=== PATIENT | female | born 1935 | race Caucasian/White ===

== ENCOUNTER 2018-09-18 11:27 | Inpatient (IN) ==
--- NOTE | 2018-09-18 12:05 | HISTORY AND PHYSICAL ---
HISTORY: This is an 80-year-old female patient of mine well known to me. She states the last night she got up and she fell. She was able to get back up on the bed, but she has discontinued epigastric pain that she has had for a couple of weeks. She feels very weak and her blood pressure was low at 94/58. Denies any chest pain or palpitations. No fever or chills. I had seen her in the clinic back just a couple of days ago, where she was complaining of her stomach burning and felt she might have gastritis or peptic ulcer disease. She has been having a lot of worry according to her son. She has not been eating or drinking much. PAST MEDICAL HISTORY: 1. Hypercholesterolemia. 2. Coronary artery disease. She has had a history of stents on initial presentation in 2013, had an abnormal stress test. In 2015, had a heart catheterization which did not show any significant restenoses. ALLERGIES: Allergic to penicillin. FAMILY HISTORY: Denies any significant heart, lung or kidney disease. SOCIAL HISTORY: Negative for alcohol or tobacco. She lives alone at home in an apartment here in [place]. REVIEW OF SYSTEMS: General: She is not eating well. Appetite is poor. Not sure how much weight loss. According to my records, she has maintained her weight at 150. She is just very weak, legs feel very weak and very tired. HEENT: No change in visual or hearing acuity. Respiratory: No increased work of breathing or dyspnea. Cardiovascular: Denies any chest pain or palpitations. GI and : No diarrhea. No change in bowels. No gross hematuria or dysuria. Endocrinologic/Hematologic: No significant history. PHYSICAL EXAMINATION: VITAL SIGNS: Blood pressure 94/58, pulse at 102, respirations 16, weight is 150 pounds, and temperature is 98.2. GENERAL: She is awake and alert. Her son had brought her to my clinic. HEENT: Pupils are equal and round. No distended neck veins. LUNGS: Clear in all lung knox. CARDIOVASCULAR: Regular rhythm and rate without murmur or S3. PMI nondisplaced. No S3 or S4 gallop appreciated. Lungs are clear anterior and posterior. ABDOMEN: She has tenderness to deep palpation in the epigastric area. Otherwise, no sign of organomegaly or tenderness for pain. EXTREMITIES: No pedal edema. ASSESSMENT AND PLAN: 1. A fall, very weak. Blood pressure is low. She may be a little bit intravascularly dry. She is not eating much, and has this epigastric pain. I am going to give her some fluids. I am going to check her electrolytes, thyroid and her blood counts. We will get a chest x-ray, an abdominal flat and upright. Maybe, we will get an ultrasound of her abdomen or 2. 2. Recent fall. It does not look like she has any bony injuries, but she lives alone not able to get around and walk very well so we would have to figure out something to improve her strength. I will get physical therapy involved. We may end up going to rehab. 3. History of coronary artery disease. I do not see any sign of active ischemia. 4. Hypercholesterolemia. Aware. cc: Zachary Rodriguez MD
[2018-09-18] MEDS ORDERED: NS 1,000 ML IV SCH (14:29)
[2018-09-18] MEDS: ATIVAN PO SCH ×2 (15:17→21:07)
[2018-09-18 15:20] LABS: BASO# 0.05 X1000 (0.0-0.2); BASO% 0.6 % (0.0-0.8); EOS# 0.02 X1000 (0.0-0.7); EOS% 0.2 % (0.0-10.0); HEMATOCRIT 34.6 % (37.0-47.0); HEMOGLOBIN 11.1 g/dL (12.0-16.0); IMM GRAN# 0.03 X1000 (0.0-0.04); IMM GRAN% 0.3 % (0.0-0.5); LYMPH# 1.34 X1000 (1.2-3.4); LYMPH% 14.8 % (20.5-51.1); MCH 32.2 PG (27-31); MCHC 32.1 g/dL (33-37); MCV 100.3 FL (81-99); MONO# 1.34 X1000 (0.11-0.59); MONO% 14.8 % (1.7-9.3); NEUT# 6.27 X1000 (1.4-6.5); NEUT% 69.3 % (42.2-75.2); PLT 263 X1000 (130-400); RBC 3.45 XMIL (4.2-5.4); RDW 16.5 % (11.5-14.5); WBC 9.05 X1000 (4.8-10.8)
--- NOTE | 2018-09-18 15:23 | EKG Report ---
Test Performed on : 09/18/2018 2:39:58 PM Test Reason : chest pain Blood Pressure : / mmHG Vent. Rate : 104 BPM Atrial Rate : 104 BPM P-R Int : 156 ms QRS Dur : 090 ms QT Int : 364 ms P-R-T Axes : 040 -05 102 degrees QTc Int : 478 ms Sinus tachycardia. Left ventricular hypertrophy with repolarization abnormality Abnormal ECG When compared with ECG of 15-SEP-2017 06:49, ST now depressed in Lateral leads T wave inversion now evident in Lateral leads Unconfirmed Result
[2018-09-18 15:42] LABS: ALB/GLOB RATIO 0.6; ALBUMIN 3.3 g/dL (3.5-5.0); CALCIUM 8.8 mg/dL (8.8-10.2); CREATININE 0.9 mg/dL (0.5-0.9); MAGNESIUM 2.2 mg/dL (1.5-2.7); POTASSIUM 4.4 mmol/L (3.5-5.1); TOTAL BILIRUBIN 0.57 mg/dL (0.20-1.00); TOTAL PROTEIN 8.7 g/dL (6.3-8.3)
[2018-09-18 16:01] LABS: T4 7.13 ug/dL (4.60-12.00); TSH 2.03 uIUmL (0.27-4.20)
[2018-09-18] MEDS: PRILOSEC PO SCH (21:07)
[2018-09-18] MEDS: ELAVIL PO SCH (21:08)
[2018-09-18] MEDS: LOPRESSOR PO SCH (21:08)
[2018-09-19 00:31] LABS: URINE SOURCE CLEAN CATCH
[2018-09-19 00:37] LABS: BILIRUBIN URINE NEGATIVE (NEGATIVE); BLOOD URINE NEGATIVE (NEGATIVE); COLOR YELLOW; GLUCOSE URINE NEGATIVE (NEGATIVE); KETONE URINE NEGATIVE (NEGATIVE); LEUKOCYTES URINE LARGE (NEGATIVE); NITRITE URINE NEGATIVE (NEGATIVE); PROTEIN URINE 50 mg/dL (NEGATIVE); SP GRAVITY URINE 1.022; TURBIDITY URINE HAZY (CLEAR); UROBILINOGEN URINE NORMAL (NORMAL)
[2018-09-19 00:38] LABS: UR EPITHELIAL CELLS <10 /HPF (<10); URINE BACTERIA NEGATIVE /HPF; URINE RBC <10 /HPF (<10); URINE WBC TNTC /HPF (<10)
[2018-09-19] MEDS ORDERED: LASIX IV ONE (04:16)
[2018-09-19 04:39] LABS: ALLEN TEST YES; BE -8.2 mmoll (-3.0-3.0); BLOOD TYPE ARTERIAL; HCO3-(ACT) 18.5 mmoll (20.0-26.0); METHB 0.8 % (0.0-1.5); O2(CT) 17.3 mL/dL (15.0-23.0); O2HB 94.7 % (95.0-99.0); PO2(98.6) 92 mmHg (60-100); SAMPLE BLOOD; SAO2 97.3 % (95.0-100.0); THB 12.9 g/dL (11.5-17.4)
[2018-09-19 04:40] LABS: MODALITY BI PAP; pH(98.6) 7.17 (7.35-7.45)
[2018-09-19 04:41] LABS: PCO2(98.6) 57 mmHg (35-45)
[2018-09-19 05:10] LABS: INR 1.17; PROTIME 15.9 Seconds (11.0-16.0)
[2018-09-19 05:40] LABS: BASO% 0.6 % (0.0-0.8); EOS# 0.08 X1000 (0.0-0.7); EOS% 0.5 % (0.0-10.0); HEMATOCRIT 40.4 % (37.0-47.0); HEMOGLOBIN 12.7 g/dL (12.0-16.0); IMM GRAN# 0.08 X1000 (0.0-0.04); IMM GRAN% 0.5 % (0.0-0.5); LYMPH# 3.38 X1000 (1.2-3.4); LYMPH% 19.6 % (20.5-51.1); MCH 31.7 PG (27-31); MCHC 31.4 g/dL (33-37); MCV 100.7 FL (81-99); MONO# 1.94 X1000 (0.11-0.59); MONO% 11.2 % (1.7-9.3); NEUT# 11.69 X1000 (1.4-6.5); NEUT% 67.6 % (42.2-75.2); PLT 425 X1000 (130-400); RBC 4.01 XMIL (4.2-5.4); RDW 16.7 % (11.5-14.5); WBC 17.27 X1000 (4.8-10.8)
[2018-09-19 05:44] LABS: ALB/GLOB RATIO 0.5; ALBUMIN 3.2 g/dL (3.5-5.0); CALCIUM 8.5 mg/dL (8.8-10.2); CREATININE 0.9 mg/dL (0.5-0.9); POTASSIUM 4.3 mmol/L (3.5-5.1); TOTAL BILIRUBIN 0.77 mg/dL (0.20-1.00); TOTAL PROTEIN 9.1 g/dL (6.3-8.3)
[2018-09-19 05:46] LABS: LYMPHS 21 % (21-51); MONO 12 % (1-9); SEGS 67 % (42-75)
[2018-09-19 05:46] LABS: URINE SOURCE CATH
[2018-09-19 05:50] LABS: BILIRUBIN URINE NEGATIVE (NEGATIVE); BLOOD URINE NEGATIVE (NEGATIVE); COLOR YELLOW; GLUCOSE URINE NEGATIVE (NEGATIVE); KETONE URINE NEGATIVE (NEGATIVE); LEUKOCYTES URINE NEGATIVE (NEGATIVE); NITRITE URINE NEGATIVE (NEGATIVE); PROTEIN URINE 30 mg/dL (NEGATIVE); SP GRAVITY URINE 1.022; TURBIDITY URINE CLEAR (CLEAR); UR EPITHELIAL CELLS <10 /HPF (<10); URINE BACTERIA NEGATIVE /HPF; URINE RBC <10 /HPF (<10); URINE WBC <10 /HPF (<10); UROBILINOGEN URINE NORMAL (NORMAL)
[2018-09-19] MEDS ORDERED: LOVENOX SUBQ SCH (06:00)
[2018-09-19 06:01] LABS: CK INDEX 6.7 (0.0-2.5); CK-MB 68.72 ng/mL (0.0-5.0)
[2018-09-19] MEDS: CLINDAMYCIN 600 MG/D5W 600 MG/50 ML IVPB IV SCH ×4 (06:10→21:11)
[2018-09-19] MEDS ORDERED: VANCOMYCIN IV PER PHARMACY MISC SCH (06:15)
--- NOTE | 2018-09-19 06:28 | Diag Imaging Result Doc PS360 ---
CHEST-PORTABLE - 09/19/2018 INDICATION: SOB COMPARISON: 09/13/2017 FINDINGS: There are new dense bilateral mixed infiltrates. There are small pleural effusions. Heart size is borderline enlarged. IMPRESSION: Extensive bilateral infiltrates which may represent pulmonary edema. Small pleural effusions. Borderline heart size. Electronically signed by Reyes Newman 09/19/2018 6:25 AM
[2018-09-19] MEDS: MAXIPIME 2 GM in NS 100 ML IV SCH ×3 (06:42→22:59)
--- NOTE | 2018-09-19 06:58 | PROGRESS NOTE ---
DATE: 09/19/2018 SUBJECTIVE: I was called early this morning from [address] [place] [address] secondary to increasing respiratory demands. Vital signs were obtained including tachycardia and tachypnea, but acceptable blood pressure. An order of Lasix was provided. An EKG was ordered. Upon my call back to confirm EKG findings, the patient had experienced progressive dyspnea and respiratory distress. Critical assistance team was contacted. I immediately came in to evaluate the patient. Upon my arrival, she remained on [address] [place] [address]. She was on BiPAP therapy. Respiratory rate was noted to be significantly elevated in the 50s. Heart rate was noted to be in the 150 range. EKG suggested a sinus tachycardia. The patient's chart was quickly reviewed. With this review and the patient's declining clinical condition, the patient was transferred to the ICU. Since being in the ICU, the patient's overall condition has improved, although not normalized. Respiratory rate has decreased from the 50 range to between 30 and 40. Heart rate has decreased from the 150s to the 130s. The patient originally complained of nausea and epigastric pain. Symptoms have essentially resolved. Laboratory data returned with concerning findings including an elevated CK and troponin. Further evaluation in the ICU setting will be pursued. OBJECTIVE: Vital Signs: Temperature 98.3 degrees, heart rate 136, respirations 31, blood pressure is 100/71. General: On BiPAP. Mild respiratory distress, significantly improved from previous. Cardiovascular: Regular rhythm. Tachycardic. No significant murmurs, rubs, or gallops. Pulmonary: Rhonchi and crackles through out. Compromised air movement. Abdomen: Soft, mildly tender in the epigastric region. Nondistended. Positive bowel sounds. Extremities: Moves all extremities well. No significant clubbing, cyanosis, or edema. Dermatologic: Evaluation reveals no evidence of rash. LABORATORY DATA: White blood cell count 17.27, hemoglobin 12.7, hematocrit 40, platelet count 425,000. PT 15.9, INR is 1.17. Sodium 130, potassium 4.3, chloride 94, bicarbonate 18, BUN 29, creatinine 0.9, glucose 220, calcium 8.5, total bilirubin 0.77, total protein 9.1, albumin 3.2, alkaline phosphatase 152, AST 197, ALT 43. CK total 1019, CK-MB 68.72, troponin 2.99. Chest x-ray reveals opacities in bilateral lungs. ASSESSMENT AND PLAN: 1. Acute respiratory failure: At this point, the definitive etiology is to be determined. Chest x-ray is consistent with pulmonary edema versus infiltrate. ABG is concerning with a pH of 7.17. The patient has been moved to the intensive care unit. A dose of Lasix was provided. BiPAP was continued. Antibiotics, including cefepime and clindamycin, were initiated for the possibility of pneumonia/aspiration. Depending on the patient's progress, the patient may require mechanical ventilation. We will follow her clinical course very closely over the course of the next several hours. We will repeat ABG at [address]-elevation acute myocardial infarction: The patient's EKG suggested inferolateral ST changes. She currently is chest pain free. The question is raised whether this is reactive from her pulmonary/respiratory distress or if this is the primary source. We will follow serial cardiac enzymes. I am unable to provide a beta-reginald at the present time secondary to her marginal blood pressure. We will consult Cardiology for further recommendations and assistance. 3. Critical aortic stenosis: The patient has known disease. The patient's volume status will be monitored closely in this setting. 4. Transaminitis/elevated alkaline phosphatase: In the setting of nausea and abdominal discomfort, the question is raised whether this may be a primary source of her acute illness. We will also remain aware that transaminases may be elevated simply secondary to elevated CK level. We will defer further management to Dr. Rodriguez. 5. Elevated protein gap: Once again, the consequence of this in the acute setting is unknown. We will defer further management to Dr. Rodriguez. 6. Disposition: At this point, the patient continues to require intermediate care in the intensive care unit setting. Further decisions will be per her primary care team. cc: MD Zachary Luciano MD MTDD
[2018-09-19 07:20] LABS: ALLEN TEST YES; BE -2.8 mmoll (-3.0-3.0); BLOOD TYPE ARTERIAL; HCO3-(ACT) 22.7 mmoll (20.0-26.0); METHB 1.3 % (0.0-1.5); MODALITY BI PAP; O2(CT) 16.3 mL/dL (15.0-23.0); PCO2(98.6) 37 mmHg (35-45); PO2(98.6) 204 mmHg (60-100); SAMPLE BLOOD; SAO2 99.5 % (95.0-100.0); THB 11.6 g/dL (11.5-17.4); pH(98.6) 7.38 (7.35-7.45)
--- NOTE | 2018-09-19 07:31 | EKG Report ---
Test Performed on : 09/19/2018 04:40:36 AM Test Reason : SOB Blood Pressure : / mmHG Vent. Rate : 156 BPM Atrial Rate : 157 BPM P-R Int : 144 ms QRS Dur : 092 ms QT Int : 292 ms P-R-T Axes : 035 000 094 degrees QTc Int : 470 ms Sinus tachycardia. Cannot rule out Anterior infarct , age undetermined Marked ST abnormality, possible lateral subendocardial injury Abnormal ECG When compared with ECG of 18-SEP-2018 14:39, Vent. rate has increased BY 52 BPM Unconfirmed Result
[2018-09-19] MEDS ORDERED: VANCOMYCIN 1,600 MG in NS 250 ML IV ONE (08:00)
[2018-09-19] MEDS: LOPRESSOR PO SCH ×2 (08:20→21:54)
[2018-09-19] MEDS: PRILOSEC PO SCH ×2 (08:22→20:20)
[2018-09-19] MEDS: CENTRUM SILVER PO SCH (08:22)
[2018-09-19] MEDS: ATIVAN PO SCH ×3 (08:23→20:20)
--- NOTE | 2018-09-19 10:56 | Diag Imaging Result Doc PS360 ---
CHEST-2 VIEWS - 09/19/2018 10:47 AM INDICATION: weakness COMPARISON: 4:38 AM FINDINGS: There has been significant improvement in the extensive bilateral infiltrates/pulmonary edema. There are small pleural effusions. Stable cardiomegaly. IMPRESSION: Significant improvement in the extensive pulmonary edema. Electronically signed by Reyes Newman 09/19/2018 10:54 AM
--- NOTE | 2018-09-19 11:05 | EKG Report ---
Test Performed on : 09/19/2018 09:27:21 AM Test Reason : ST Blood Pressure : / mmHG Vent. Rate : 112 BPM Atrial Rate : 112 BPM P-R Int : 172 ms QRS Dur : 080 ms QT Int : 346 ms P-R-T Axes : 041 001 116 degrees QTc Int : 472 ms Sinus tachycardia. Left ventricular hypertrophy with repolarization abnormality Abnormal ECG No previous ECGs available Unconfirmed Result
--- NOTE | 2018-09-19 11:53 | CARDIOLOGY CONSULTATION ---
DATE: 09/19/2018 CHIEF COMPLAINT: Generalized weakness, and falling. HISTORY OF PRESENT ILLNESS: Ms. Hogan is an 82-year-old, white female with a history of coronary disease and severe aortic stenosis who presented yesterday with feeling of weakness as well as a fall. The previous evening, she had apparently got up and had a fall. She was did not suffer any injuries, but was able to get back in bed. She has had some vague epigastric discomfort for number of days, but no exertional chest pain. She denies any overt orthopnea, syncope or lower extremity edema. She was admitted and placed on some IV fluids and then very early this morning she had respiratory distress. She was very tachycardic. She was eventually transferred down to the ICU and was seen by Dr. See Mccarthy. She was diuresed, placed on BiPAP and resuscitated appropriately. This morning she is on just nasal cannula. She is not having any discomfort. Her breathing is adequate and she has no chest pain. PAST MEDICAL HISTORY: 1. Significant for coronary artery disease. She had a previous history of PCI as well as a catheterization in 2018. I do not have those notes available to me at this time, but she did have a severe lesion on that study which required intervention. 2. History of severe aortic stenosis. The last echocardiogram that I have was from August 2017. This demonstrated a mean gradient across the aortic valve of 63, a peak of 96 and a valve area using continuity equation of 0.6 cm2. She had a dilated left ventricle with hyperdynamic left ventricular function of 75%. She initially had evaluation of this with Dr. Kapadia and was due to undergo a valve replacement with coronary bypass grafting, but this procedure was apparently terminated secondary to potential infectious issues going on at that time, as well as a concern for a potential anesthetic reaction as the patient had an abrupt temperature rise from 37 to 38 degrees Celsius. 3. Reflux disease. SOCIAL HISTORY: No alcohol or tobacco. She apparently lives at home alone. FAMILY HISTORY: No history of coronary disease that she is aware of. REVIEW OF SYSTEMS: A 10-system review of systems is negative except for those mentioned in history of present illness. PHYSICAL EXAMINATION: Vital signs: The patient is afebrile. Her heart rate has been predominantly in the 110s to 120s recently. Her blood pressure is 74/63. Her systolics most recently appear to be in the 70s to 90s. Generally: She is in no acute distress. She is sitting up. She has no complaints. She is talking in full sentences. She is in no discomfort. HEENT: Oropharynx is moist. She has poor dentition. Eye examination shows pink conjunctivae. White sclerae. Neck: Examination shows no obvious thyromegaly or thyroid tenderness. Cardiovascular: She sounds to be in a regular rate and rhythm. I do not hear any obvious murmurs. She has no S3. She has no lower extremity edema. She has warm and well perfused extremities. Chest: Exam sounds relatively clear to auscultation bilaterally. She has no increased work of breathing. Abdomen: Soft, nontender, nondistended. She has no obvious organomegaly. Skin: Warm and dry throughout without any rashes. Neurological: She is moving all extremities well. She has no lateralizing deficits. Psychiatric: Alert and oriented, pleasant, normal mood and affect. PERTINENT DATA: Her EKG on the at 14:39 shows sinus rhythm, LVH with associated ST-T wave changes. Rate was 104 beats per minute. Her subsequent EKG September 19 at 4:40 a.m. appears to show a sinus tachycardia at 156 beats per minute. She does have some mild worsening of her ST depression in the lateral chest and limb leads. Final EKG occurring this morning at 9:27 shows sinus tachycardia 112 beats per minute. She has a mild ST depression in her lateral leads with associated LVH-type changes. She had a chest x-ray performed showing a significant improvement in bilateral extensive pulmonary infiltrates and edema. Her laboratory data shows a white count of 17.2 which jeni from 9 yesterday, hematocrit 40, platelet count 425,000. She does have a sodium of 130, potassium 4.3, BUN 29, creatinine 0.9. Her CK is 1019. Her initial troponin is 2.99. Her UA was reviewed. ASSESSMENT: Ms. Hogan is an 82-year-old female with severe aortic stenosis a year ago who presented with complaints of weakness and subsequently developed a respiratory failure likely secondary to volume overload due to her severe aortic stenosis. PLAN: Ms. Hogan is an 82-year-old female who presented with vague weakness complaints yesterday, subsequently had a respiratory arrest likely due to critical aortic stenosis. The events of a year ago or a little bit fuzzy, but it sounds like she may not have followed up with her business partner over in [place], Dr. Ortega, to pursue further evaluations after the bypass and valve replacement were aborted originally. It sounds like she was undergoing some sort of TAVR-type evaluation, but she again never followed up with this. I have had charanjit discussions with her regarding her current medical situation and consequences of not pursuing action on this in the future. She is currently deciding whether she wants to go through aortic valve evaluations again or whether she would pursue a more medical treatment, which ultimately I think would be a more palliative/hospice-type approach. She seems better from a volume standpoint currently. We will reorder an echo to re-evaluate her aortic valve and her ejection fraction. Further recommendations to come. cc: MD Zachary Nur MD
--- NOTE | 2018-09-19 12:30 | PROGRESS NOTE ---
DATE: 09/19/2018 SUBJECTIVE: Ms. Hogan is awake and alert. She is breathing better, feels more comfortable. She has moved to the ICU. She had a rough evening and she looked like she went into flash edema. Dr. Mccarthy gave her some Lasix and diuresed her and for a while she was on BiPAP. She is now on nasal cannula breathing more comfortably. Her son was at the bedside. OBJECTIVE: Vitals: Temperature 98 degrees, pulse 111, respirations 34, blood pressure 74/63. Blood pressures have been between 74 and 88/60-63. Eyes: Pupils are equal. Neck: She does not have distended neck veins at this time. Lungs: Clear with rales at both bases. Cardiovascular exam: Regular rhythm and rate without murmur or S3. Abdomen: Soft. Extremities: No pedal edema. LABORATORY: Yesterday, white count went up from 9000 to 17,270. Her hematocrit was 40, platelet count 425,000. Sodium 130, potassium 4.3, chloride 94, BUN 29, creatinine 0.9, alkaline phosphatase 152. CKs are elevated at 1000. Troponin 2.990, so elevation of troponin as well. Urinalysis unremarkable. Blood gas yesterday morning, pH was 7.38, pCO2 was 37, PO2 was 204, O2 saturation 99%. That was on BiPAP 14/6, pressure at 60% FiO2. ASSESSMENT AND PLAN: 1. She had severe aortic stenosis a year ago. There was an attempt to replace her aortic valve, but she was on the operating table and developed a febrile illness and seemed to have a reaction. They were questioning a reaction to anesthesia, and they did they did not want to pursue the procedure. I think she was going to follow up and was supposed to follow up and look into intervascular procedure for aortic valve replacement, but this was not done. She has reported she has felt good for the last 6 months, but this appears to be decompensation of her aortic valve. 2. Recent fall. No bony injuries, but very sore and complains she is very weak. They is why she came into the hospital. 3. Coronary artery disease. She has an elevation of troponin and CK and this may be a secondary type of ischemia from hypoxemia and aortic stenosis. She does have known coronary artery disease. 4. Hypercholesterolemia. Cardiology to discuss with her our options. Her electrolytes this morning, sodium 130, potassium 4.3, chloride 94, BUN 29, creatinine 0.9. 5. Current orders: She is on Elavil 25 mg at bedtime, getting clindamycin 600 mg q.8 hours, getting cefepime 2 g IV q.8, Prilosec 40 mg b.i.d. She got a dose of vancomycin yesterday. 6. I do not see any evidence specifically of pneumonia, but cannot rule out at this point. Chest x-ray this morning, significant improvement in extensive pulmonary edema. 7. She has a nondisplaced fracture of the distal radius on her wrist x-ray, and that was on the left side and her shoulder x-ray, fracture of the proximal humerus and her elbow, no evidence of acute osseous abnormality. So, she has a fracture in her left shoulder, proximal humerus, and fracture in her wrist. These are old fractures from December 2017, but no new bony injuries that we have determined. She had previously been in the hospital for a syncopal episode without warning and she had some hyponatremia. Appeared a little volume depleted. We discovered that she had severe aortic stenosis, underlying coronary artery disease, underwent coronary intervention in 2016 at [facility] and had 2 stents applied. Gave her some normal saline at that time and set her up for follow-up on valve replacement dictation. cc: Zachary Rodriguez MD
[2018-09-19 15:51] LABS: CK INDEX 6.9 (0.0-2.5); CK-MB 46.11 ng/mL (0.0-5.0)
[2018-09-19] MEDS: TYLENOL PO PRN (16:34)
[2018-09-19] MEDS: ELAVIL PO SCH (20:20)
[2018-09-19] MEDS: LOVENOX SUBQ SCH (20:20)
[2018-09-19 21:42] LABS: CK INDEX 6.4 (0.0-2.5); CK-MB 28.78 ng/mL (0.0-5.0)
[2018-09-20] MEDS: CLINDAMYCIN 600 MG/D5W 600 MG/50 ML IVPB IV SCH ×4 (04:58→21:41)
[2018-09-20] MEDS: MAXIPIME 2 GM in NS 100 ML IV SCH ×5 (05:41→22:13)
[2018-09-20 06:19] LABS: CALCIUM 8.5 mg/dL (8.8-10.2); CREATININE 0.9 mg/dL (0.5-0.9); POTASSIUM 4.2 mmol/L (3.5-5.1)
[2018-09-20 07:23] LABS: CK INDEX 5.6 (0.0-2.5); CK-MB 16.95 ng/mL (0.0-5.0)
[2018-09-20] MEDS: LOPRESSOR PO SCH ×3 (08:50→20:46)
[2018-09-20] MEDS: CENTRUM SILVER PO SCH (08:50)
[2018-09-20] MEDS: PRILOSEC PO SCH ×3 (08:50→20:47)
[2018-09-20] MEDS: ATIVAN PO SCH ×4 (08:50→20:46)
[2018-09-20] MEDS ORDERED: NS 400 ML IV ONE (08:51)
[2018-09-20] MEDS: LOVENOX SUBQ SCH ×3 (08:54→20:46)
[2018-09-20] MEDS: ZOFRAN IV PRN ×3 (09:13→19:33)
[2018-09-20] MEDS: NS 1,000 ML IV SCH (09:15)
--- NOTE | 2018-09-20 10:33 | PROGRESS NOTE ---
DATE: 09/20/2018 SUBJECTIVE: Ms. Hogan was sitting up. She is breathing better. She is having nausea, though today. Blood pressure is a little lower, so I am going to give her a little bit of fluid back today and see if that helps her. OBJECTIVE: Vitals: Temperature 97.9 degrees, pulse 103, respirations 15, blood pressure 99/67. Lungs: Clear in all lung knox. Cardiovascular: Regular rate without murmur or S3. Abdomen: Soft. Skin: Warm and dry. URINE OUTPUT: 1 liter . ASSESSMENT AND PLAN: Presented with weakness. She has a critical aortic stenosis and she has had symptomatic syncope and hypotension. She had followed up with Dr. Ortega. Her open aortic valve replacement had been aborted originally and she was to pursue a TAVR-type evaluation, but I do not know that has ever happened. So, I will discuss with [place] and we will see if we can get that set up. I had a long discussion with her and she has agreed to try to pursue TAVR aortic valve replacement. I think we need to go after that. cc: Zachary Rodriguez MD
[2018-09-20] MEDS: TYLENOL PO PRN (11:29)
--- NOTE | 2018-09-20 13:19 | ECHO REPORT ---
ORDER DATE: 09/19/2018 ECHOCARDIOGRAPHIC MEASUREMENTS: 1. Left ventricular end-diastolic diameter 5.3. 2. Aortic root 3.1. 3. Left atrium 4.7. SUMMARY: 1. Fair quality study. Intravenous echo contrast agent utilized to enhance endocardial definition. 2. 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 Peak velocity across aortic valve was 3.7. Peak gradient across the aortic valve was 58 mmHg with a mean gradient of 35 mmHg. The calculated aortic valve area using continuity equation/Doppler is less than or equal to 0.6 cm2 suggesting severe aortic stenosis. Moderate mitral annular calcification is demonstrated with mild to moderate mitral regurgitation. Tricuspid and pulmonic valves are without evidence of structural abnormality with mild tricuspid regurgitation and mild pulmonic insufficiency. The estimated systolic PA pressure by Doppler is 60 mmHg suggesting moderate pulmonary hypertension. The aortic root is normal in size. 3. Normal left ventricular chamber size with mild concentric left hypertrophy is demonstrated. Estimated left ventricular ejection fraction is approximately 30 to 35 percent. There is severe hypokinesis of the apical anteroseptal region and apex. Left atrium is moderately enlarged. Right atrium and right ventricle are grossly normal in size with grossly preserved right ventricular systolic function. 4. No pericardial effusion. 5. Appearance of inferior vena cava suggests normal central venous pressure. cc: MD Riley Lopez MD Allen J. Schmidt, MD
[2018-09-20] MEDS ORDERED: VANCOMYCIN 1,300 MG in NS 250 ML IV SCH (14:00)
--- NOTE | 2018-09-20 14:59 | CARDIOLOGY PROGRESS NOTE ---
DATE: 09/20/2018 SUBJECTIVE: Ms. Hogan feels somewhat nauseous and weak today. PHYSICAL EXAMINATION: She is afebrile. Heart rates seem to be in the 110s to 120s. Evaluation of her telemetry shows sinus. Blood pressure is 78/55. Most of her systolics appear to be in the 70s to 90s. Generally, she is in mild distress, and appears somewhat ill and weak. Cardiovascular: She appears to be in a regular rate and rhythm. Current telemetry shows her heart rate to be in the 90s. She has no lower extremity edema. Warm and well-perfused extremities. She has no obvious murmurs. Her chest exam sounds clear bilaterally. She has no increased work of breathing. Abdomen is soft and nontender. PERTINENT DATA: Her sodium is 133, potassium is 4.2, BUN is 40 and creatinine is 0.9 which has increased from 29 and 0.9 yesterday. Her troponin yesterday was 3.2. ASSESSMENT: Ms. Hogan is an 82-year-old female who presented with vague symptoms of fatigue and nausea, subsequently had a respiratory failure type issue secondary to severe aortic stenosis. PLAN: We are continuing to pursue evaluations of her aortic valve. Her echocardiogram demonstrated a new reduction in EF of 30-35% with a valve area of 0.6. This would suggest severe low output aortic stenosis. We would recommend pursuing a heart catheterization, which we will tentatively plan for Tuesday. She is on a low dose of IV fluids right now, which I agree with presently. We will continue with the current management. She is on Lovenox currently. Her electrocardiogram checked yesterday did not demonstrate any clear evidence of significant ischemic changes. cc: MD Zachary Nur MD
[2018-09-20] MEDS: ELAVIL PO SCH ×2 (19:34→20:46)
[2018-09-21] MEDS: ZOFRAN IV PRN ×2 (01:39→07:49)
[2018-09-21] MEDS: NS 1,000 ML IV SCH (02:40)
[2018-09-21] MEDS: MAXIPIME 2 GM in NS 100 ML IV SCH (06:31)
[2018-09-21] MEDS: CLINDAMYCIN 600 MG/D5W 600 MG/50 ML IVPB IV SCH (06:31)
[2018-09-21] MEDS: PRILOSEC PO SCH ×2 (09:14→20:01)
[2018-09-21] MEDS: LOPRESSOR PO SCH ×2 (09:14→20:00)
[2018-09-21] MEDS: CENTRUM SILVER PO SCH (09:14)
[2018-09-21] MEDS: ATIVAN PO SCH ×3 (09:14→20:00)
[2018-09-21] MEDS: LOVENOX SUBQ SCH ×2 (09:16→20:03)
--- NOTE | 2018-09-21 10:13 | PROGRESS NOTE ---
DATE: 09/21/2018 SUBJECTIVE: Ms. Hogan is still nauseated and stayed nausea most of the day. She denies any chest pain or any other pain. Breathing is comfortable. OBJECTIVE: Temp 96.5 degrees, pulse 129, respirations 15, blood pressure 111/74. Pupils are equal lungs are clear in all lung knox. Cardiovascular regular rate without murmur or S3. Abdomen is soft. Skin is warm and dry. Urine output was about 1400 mL. ASSESSMENT AND PLAN: 1. Still pursuing evaluation of the aortic valve. Echocardiogram showed ejection fraction 30 35% with a valve area 0.6 which would suggest severe low output aortic stenosis and so we are going to pursue heart catheterization tomorrow. Continue present management. I have been giving her a little more volume back because she is so nauseated. 2. Recent fall. She has had a couple syncopal episodes, I think related to her severe aortic stenosis. 3. Coronary artery disease, elevation of her troponin and CK and this may be a type 2 ischemia. We will do a heart catheterization in the morning and look at her coronary supply. 4. Hypercholesterolemia. 5. Nausea. Review of her current orders she is on Elavil 25 mg at bedtime, clindamycin 600 mg IV every 8 which I think we can stop her antibiotics. I see no evidence of bacterial infection. She is on cefepime 2 gram IV every 8 this may be contributing to her nausea, so I will stop those antibiotics. We are going to repeat a chest x-ray. As well as the chest x- ray from the 12th significant improvement in pulmonary edema. cc: Zachary Rodriguez MD
--- NOTE | 2018-09-21 10:44 | Diag Imaging Result Doc PS360 ---
CHEST-PORTABLE - 09/21/2018 INDICATION: chf COMPARISON: 09/19/2018 FINDINGS: There is worsening in the diffuse bilateral infiltrates. Stable cardiomegaly. Stable trace bilateral pleural effusions. IMPRESSION: Worsening in the pulmonary edema. Electronically signed by Reyes Newman 09/21/2018 10:42 AM
[2018-09-21] MEDS ORDERED: LASIX IV ONE (10:57)
[2018-09-21] MEDS: ATIVAN IV PRN (11:32)
--- NOTE | 2018-09-21 13:30 | CARDIOLOGY PROGRESS NOTE ---
DATE: 09/21/2018 SUBJECTIVE: Ms. Hogan continues to have some nausea. OBJECTIVE: Vital Signs: She is afebrile. Her heart rates continue to be somewhat elevated, predominantly in the 110s to 120s. Telemetry currently seems to suggest sinus tachycardia. Blood pressure 108/69. General: She is in no acute distress. Cardiovascular: She is in a tachycardic and regular rhythm. She has no lower extremity edema. She has a 2 to 3/6 systolic murmur best heard at the right upper sternal border. Chest: Mild basilar rales. She has no increased work of breathing. Abdomen: Soft, nontender. PERTINENT DATA: She has no new laboratory data from today. She had a chest x-ray checked today, showing worsening of her pulmonary edema. PLAN: I will stop her IV fluids. She already received a 40 mg IV dose of Lasix per the primary team this morning. She is on metoprolol 12.5 b.i.d., initiated on 09/18/2018, which we will continue. Tentative plans for cardiac catheterization in the morning. Orders to be placed. cc: MD Zachary Nur MD
[2018-09-21 14:07] LABS: CALCIUM 8.4 mg/dL (8.8-10.2); CREATININE 1.1 mg/dL (0.5-0.9); POTASSIUM 4.8 mmol/L (3.5-5.1)
[2018-09-21] MEDS: ELAVIL PO SCH (20:01)
[2018-09-22 05:16] LABS: BASO# 0.09 X1000 (0.0-0.2); EOS# 0.33 X1000 (0.0-0.7); EOS% 3.8 % (0.0-10.0); HEMATOCRIT 31.7 % (37.0-47.0); IMM GRAN# 0.04 X1000 (0.0-0.04); IMM GRAN% 0.5 % (0.0-0.5); LYMPH# 1.75 X1000 (1.2-3.4); LYMPH% 20.2 % (20.5-51.1); MCH 32.3 PG (27-31); MCHC 31.5 g/dL (33-37); MCV 102.3 FL (81-99); MONO# 1.13 X1000 (0.11-0.59); NEUT# 5.33 X1000 (1.4-6.5); NEUT% 61.5 % (42.2-75.2); PLT 368 X1000 (130-400); RDW 17.2 % (11.5-14.5); WBC 8.67 X1000 (4.8-10.8)
[2018-09-22 05:43] LABS: CALCIUM 8.1 mg/dL (8.8-10.2); POTASSIUM 4.4 mmol/L (3.5-5.1)
--- NOTE | 2018-09-22 07:56 | EKG Report ---
Test Performed on : 09/22/2018 07:30:37 AM Test Reason : tachycardia Blood Pressure : / mmHG Vent. Rate : 111 BPM Atrial Rate : 111 BPM P-R Int : 140 ms QRS Dur : 088 ms QT Int : 354 ms P-R-T Axes : 049 008 131 degrees QTc Int : 481 ms Sinus tachycardia. Septal infarct , age undetermined ST & T wave abnormality, consider lateral ischemia Abnormal ECG When compared with ECG of 19-SEP-2018 09:27, Non-specific change in ST segment in Inferior leads ST now depressed in Anterior leads Unconfirmed Result
[2018-09-22 08:14] LABS: INR 1.24; PROTIME 16.6 Seconds (11.0-16.0)
[2018-09-22] MEDS: ATIVAN PO SCH ×3 (09:51→21:56)
[2018-09-22] MEDS: CENTRUM SILVER PO SCH (09:51)
[2018-09-22] MEDS: PRILOSEC PO SCH ×2 (09:52→21:55)
[2018-09-22] MEDS: LOPRESSOR PO SCH ×2 (09:52→21:55)
[2018-09-22] MEDS: PRINIVIL PO SCH (09:52)
[2018-09-22] MEDS ORDERED: HEPARIN 1000 UNITS/NS 2,000 UNIT/1,000 ML IV.SOLN ONE (12:15)
[2018-09-22] MEDS ORDERED: DILAUDID ONE (12:26)
[2018-09-22] MEDS ORDERED: VERSED ONE (12:26)
[2018-09-22] MEDS ORDERED: NITROGLYCERIN ONE (12:53)
--- NOTE | 2018-09-22 13:57 | CARDIAC CATH REPORT ---
PROCEDURE NAME: - INDICATION: 1. Severe aortic stenosis. 2. Non ST-elevation myocardial infarction. PROCEDURES PERFORMED: 1. Selective coronary angiography. 2. Right heart catheterization. PROCEDURE IN DETAIL: Ms. Hogan was brought to the catheterization laboratory in a fasting state. Informed consent was obtained. Prepped in usual fashion. She was anesthetized over the right femoral area. Initially, the right femoral vein was cannulated and wire was left in place. Subsequently, the right femoral artery was cannulated and sheath was placed via modified Seldinger technique. The wire was then passed into the right femoral vein. All were flushed. The right heart catheterization was performed by advancing the Ahmeek-Tri catheter into wedge position. Thermodilution cardiac outputs were obtained. Pullback measurements of the right ventricle and right atrium pressures were made. Subsequently, multiple coronary angiograms were performed in multiple views using JL4 and JR4 diagnostic catheters. At the conclusion of the procedure, all sheaths and catheters were removed. Pressure was held. Good hemostasis, 45 mL of Visipaque. 10 mL of blood loss. No apparent complications. FINDINGS: 1. The left main appears to have an ostial 20 to 30 percent lesion. 2. Left anterior descending has a proximally patent stent with no clear evidence of significant obstruction. There are minor luminal irregularities proximal and just distal to the stent. At the takeoff of a large 2nd diagonal, there is a calcified 70% lesion at the continuation of an extremely small LAD. This does not appear to be significantly changed since the 2018 catheterization. The second diagonal is small to moderate size vessel with mild luminal irregularities. 3. Circumflex originates from the left main. There is a complex calcified lesion that is long and around 70% in the proximal vessel. The remainder of the circumflex terminates in 2 relatively small to moderate size OMs. The remainder of the circumflex has minimal luminal irregularities. 4. Right coronary originates from the right coronary cusp. On some views, there appears to be an ostial lesion but this does not appear present in other views. There is a mid vessel complex calcified lesion that appears to be around 50 to 60% percent. It is a possible chronic dissection. This does not appear to be any different than previous catheterization in 2018. The remainder of the right coronary artery appears to have mild luminal irregularities up to around 20% to 30%. 5. Aortic blood pressure is 108/65 with a mean of 83. 6. Right atrial pressure 20. 7. Right ventricle pressure 59/9 with a filling pressure of 22. 8. PA pressure 58/30 with a mean of 41. 9. Wedge pressure of 34. 10. Cardiac output of 3.7 with a cardiac index of 2.1. ASSESSMENT: Ms. Hogan is an 82-year-old female who underwent aortic stenosis evaluation 1 year ago. She did not continue to follow with Cardiology after that. She presented with heart failure and a non ST elevation myocardial infarction. PLAN: Patient appears to have very small vessels with some questionable disease in the mid left anterior descending as well as circumflex vessels. We will discuss with [facility] about further evaluations. She certainly needs consideration for replacement of the valve. Her wedge is markedly elevated, as is the right atrial pressure. We will diurese her this afternoon. Her cardiac index and outputs are low. Patient tolerated this procedure well without any complications. cc: MD Zachary Nur MD MTDD
--- NOTE | 2018-09-22 14:38 | PROGRESS NOTE ---
DATE: 09/22/2018 SUBJECTIVE: Ms. Hogan is having a little nausea this morning, but it is not as bad as it was. Her breathing is comfortable. She is awake and alert, oriented x3. She understands the plan. Plan is for heart catheterization I think about 11 o'clock this morning. Remains afebrile. OBJECTIVE: Vital Signs: Temperature 97.2 degrees, pulse 108, respirations 23, blood pressure 104/71. Eyes: Pupils are equal and round. Lungs: Clear in all lung knox. Cardiovascular exam: Regular rhythm and rate without murmur or S3. : Urine output is 2400 mL. REVIEW OF LABS: Her lab from yesterday: Hematocrit 31, hemoglobin 10. Electrolytes look good. Creatinine 1.0. ASSESSMENT AND PLAN: Plan is for left heart catheterization this morning. She is on metoprolol 12.5 mg twice daily initiated on 09/18/2018, and continue to give her a dose of Lasix yesterday and then plan is for heart catheterization today. Severe aortic stenosis. History of coronary artery disease. Her echocardiogram demonstrated new reduction in ejection fraction 30% to 35% with a valve area of 0.6 and suggests severe low output aortic stenosis. Would like to get a heart catheterization and see if we could pursue possibly transaortic valve replacement. I do not see any change in her orders at this time. cc: Zachary Rodriguez MD
[2018-09-22] MEDS: TYLENOL PO PRN ×2 (16:02→21:56)
[2018-09-22] MEDS ORDERED: SAMSCA PO ONE (17:30)
[2018-09-22] MEDS ORDERED: LASIX IV ONE (17:30)
[2018-09-22] MEDS: CARAFATE LIQUID PO SCH ×2 (18:04→21:57)
[2018-09-22] MEDS: ELAVIL PO SCH (21:55)
[2018-09-23] MEDS: ZOFRAN IV PRN ×2 (01:34→10:52)
[2018-09-23] MEDS: CARAFATE LIQUID PO SCH ×6 (01:35→20:45)
[2018-09-23 06:54] LABS: AGAP 9; BUN 48 mg/dL (8-22); CALCIUM 8.6 mg/dL (8.8-10.2); CHLORIDE 104 mmol/L (98-107); COSMO 283; CREATININE 0.8 mg/dL (0.5-0.9); ESTIMATED GFR > 60; GLUCOSE 101 mg/dL (70-104); MAGNESIUM 2.3 mg/dL (1.5-2.7); POTASSIUM 4.2 mmol/L (3.5-5.1); SODIUM 135 mmol/L (136-145); TCO2 22 mmol/L (25-35)
[2018-09-23] MEDS: LASIX IV SCH ×2 (08:22→20:36)
[2018-09-23] MEDS: PRINIVIL PO SCH (08:23)
[2018-09-23] MEDS: ATIVAN PO SCH ×3 (08:23→20:38)
[2018-09-23] MEDS: PRILOSEC PO SCH ×2 (08:23→20:36)
[2018-09-23] MEDS: LOPRESSOR PO SCH ×2 (08:24→20:38)
[2018-09-23] MEDS: CENTRUM SILVER PO SCH (08:24)
[2018-09-23] MEDS: MYCOSTATIN SUSP PO SCH ×4 (08:56→20:36)
--- NOTE | 2018-09-23 10:03 | PROGRESS NOTE ---
DATE: 09/23/2018 SUBJECTIVE: Ms. Hogan states she just does not feel good. The nausea is a little less. She was able to eat a little more for breakfast. She just does not feel good in the sense that she feels weak and no energy. No strength. OBJECTIVE: Vital Signs: Temperature 97.4 degrees, pulse 114, respirations 38, blood pressure 113/70. HEENT: Pupils are equal and round. Neck: No distended neck veins. Lungs: Clear anterolateral. Cardiovascular exam: She has a 4/6 systolic ejection murmur at the sternal notch, heard up radiating into the carotids. Abdomen: Soft, nontender. Extremities: No pedal edema. LABS: Reviewed lab from yesterday: Sodium 135, potassium 4.2, chloride 104. BUN 48, creatinine 0.8, calcium 8.6. ProBNP was greater than 35,000. Hematocrit 31, hemoglobin 10, creatinine is 0.8, which is improved. ASSESSMENT AND PLAN: 1. Severe aortic stenosis with slowly worsening of pulmonary edema. Her breathing is doing a little bit better. She has responded to some diuresis. She is on metoprolol 12.5 mg twice daily. Heart catheterization done yesterday appears to have very small vessels with some questionable disease in the left anterior descending, as well as circumflex vessel. I think she needs to pursue a valve replacement. Her wedge is markedly as are right atrial pressures. Continue to diurese. Her cardiac index and outputs were low. 2. I think she has gastritis. Continue proton pump inhibitor and Carafate. Still with some nausea. 3. Coronary artery disease as above. 4. Hypercholesterolemia. We will discuss with Cardiology. MEDICATIONS: She is on Lasix 40 mg IV twice a day, Elavil 25 mg at bedtime, Tylenol 650 mg q. 6 hours p.r.n., Ativan 0.5 mg IV q. 2 hours p.r.n. anxiety, and she is getting scheduled Ativan 0.5 mg 3 times a day, Lopressor 12.5 mg b.i.d., Prilosec 40 mg b.i.d., Carafate 1 g q. 4 hours. She is getting nystatin and she has some mouth irritation; it looks like some oral thrush. So, we are treating for oral candidiasis, swish and swallow 4 times a day. Continue to watch. cc: Zachary Rodriguez MD
--- NOTE | 2018-09-23 14:10 | CARDIOLOGY PROGRESS NOTE ---
DATE: 09/23/2018 SUBJECTIVE: Ms. Hogan denies any acute shortness of breath. She has some mild tenderness at the catheterization site but no obvious evidence of hematoma or significant abnormality. PHYSICAL EXAMINATION: She is afebrile. Her heart rate is in the low 100s to 110s. Blood pressure is 102/64. I's and O's appear to be negative over the last 24 hours on the order of around 1200 mL.General: She is in no acute distress. Cardiovascular: She is in a tachycardic but regular rhythm. She has a 2 to 3/6 systolic murmur at the right upper sternal border. She has no lower extremity edema. Warm and well-perfused extremities. Her chest sounds relatively clear. She has no increased work of breathing. Abdomen: Soft, nontender. PERTINENT DATA: She has no CBC data from today. Her chemistry data shows a sodium 135, potassium 4.2, her BUN is 48 with a creatinine of 0.8 which is improved. Her proBNP is greater than 35,000. ASSESSMENT: Ms. Hogan is an 82-year-old female with significant coronary disease and severe aortic stenosis. PLAN: We will continue to diurese the patient. She has had about 1200 mL out. She has a somewhat tenuous blood pressure. We have initiated her on metoprolol as well as lisinopril. She is diuresing slightly. We have forwarded her information to the of Valve Clinic at [facility] so at some point when she gets discharged we can pursue potential valve replacement. I have ordered physical therapy to come work with the patient to work on mobility. cc: MD Zachary Nur MD
[2018-09-23] MEDS: ELAVIL PO SCH (20:39)
[2018-09-24] MEDS: CARAFATE LIQUID PO SCH ×6 (02:00→20:47)
[2018-09-24 06:46] LABS: AGAP 10; BUN 33 mg/dL (8-22); CALCIUM 8.5 mg/dL (8.8-10.2); CHLORIDE 104 mmol/L (98-107); COSMO 291; CREATININE 0.7 mg/dL (0.5-0.9); ESTIMATED GFR > 60; GLUCOSE 102 mg/dL (70-104); MAGNESIUM 1.9 mg/dL (1.5-2.7); POTASSIUM 3.9 mmol/L (3.5-5.1); SODIUM 142 mmol/L (136-145); TCO2 28 mmol/L (25-35)
--- NOTE | 2018-09-24 08:03 | PROGRESS NOTE ---
DATE: 09/24/2018 SUBJECTIVE: Ms. Hogan is feeling better today. She states the nausea has resolved and breathing is comfortable. Feels better this morning. PHYSICAL EXAMINATION: Temperature 98.3 degrees, pulse 96, respirations 33, blood pressure is 79/46. Blood pressures have ranged between 79-111/46-66. Lungs are clear anterolateral. Cardiovascular Examination: Regular rhythm and rate without murmur or S3. Abdomen is soft. Skin is warm and dry. Urine output 4700 mL. ASSESSMENT AND PLAN: Severe aortic stenosis with significant coronary artery disease. She has diuresed well. For a while, had somewhat tenuous blood pressure. Her nausea has resolved. We have stopped the antibiotics. Cardiology, Dr. Guthrie, has initiated her on metoprolol and lisinopril. She looks better. Information has been sent to the valve clinic in [place]. We need to pursue potential aortic valve replacement, probably intra-aortic valve replacement. We will work with physical therapy, see if we can move her to [facility]. MEDICATIONS: She is on Elavil 25 mg at bedtime, Lasix 40 mg IV q.12 or twice a day, Prinivil 5 mg a day, Ativan 0.5 mg q.2 hours p.r.n., Lopressor 12.5 mg b.i.d., multivitamin one a day, Prilosec 40 mg twice a day, Carafate 1 g q.4 hours, Ultram 50 mg b.i.d. p.r.n. Note, we are treating her for what I think is chronic gastritis as well. We will see if we can move her to [facility]. LABS: From the were reviewed but the electrolytes from this morning, sodium 142, potassium 3.9, chloride 104, BUN 33, creatinine 0.7 so it looks good. Her proBNP is staying up around 30,000 and above. cc: Zachary Rodriguez MD
[2018-09-24] MEDS: CENTRUM SILVER PO SCH (09:17)
[2018-09-24] MEDS: ATIVAN PO SCH ×3 (09:17→20:46)
[2018-09-24] MEDS: PRILOSEC PO SCH ×2 (09:17→20:45)
[2018-09-24] MEDS: LASIX IV SCH ×2 (09:17→20:46)
[2018-09-24] MEDS: MYCOSTATIN SUSP PO SCH ×4 (09:17→20:46)
[2018-09-24] MEDS: LOPRESSOR PO SCH ×2 (09:21→20:46)
[2018-09-24] MEDS: PRINIVIL PO SCH (09:21)
[2018-09-24] MEDS: ULTRAM PO PRN (11:30)
--- NOTE | 2018-09-24 13:09 | CARDIOLOGY PROGRESS NOTE ---
DATE: 09/24/2018 SUBJECTIVE: Ms. Hogan continues to have vague complaints of not feeling well. She is not able to describe this any further. OBJECTIVE: Vital Signs: She is afebrile, her heart rate is in the 90s to low 100s, blood pressure 93/52. Her I's and O's are negative over the last 24 hours. Total hospitalization, she is -350 mL. General: No acute distress. Cardiovascular: She is in a regular rate and rhythm. She has a 2 to 3/6 systolic murmur at the right upper sternal border. Telemetry currently shows sinus. Extremities: She has no lower extremity edema. Chest: Sounds clear bilaterally. No increased work of breathing. Abdomen: Soft, nontender. PERTINENT DATA: Sodium is 142, potassium 3.9, BUN and creatinine are 33 and 0.7 respectively, which has steadily improved since 09/21/2018. ProBNP is 31,764, which is down from yesterday's. ASSESSMENT: Ms. Hogan is an 82-year-old female with systolic heart failure and severe aortic stenosis. PLAN: Hemodynamics do not seem to allow us to titrate medications further. She is on a low dose of lisinopril as well as metoprolol. We will continue her on furosemide at 40 IV b.i.d. We may consider adding in a small dose of Aldactone tomorrow. Electrolytes are okay today. cc: MD Zachary Nur MD
[2018-09-24] MEDS: ELAVIL PO SCH (20:46)
[2018-09-25] MEDS: ULTRAM PO PRN (00:34)
[2018-09-25] MEDS ORDERED: BLISTEX MEDICATED BERRY LIP BALM TOP ONE (00:52)
[2018-09-25] MEDS: CARAFATE LIQUID PO SCH ×6 (01:51→20:52)
[2018-09-25 05:51] LABS: AGAP 12; BUN 27 mg/dL (8-22); CALCIUM 8.7 mg/dL (8.8-10.2); CHLORIDE 99 mmol/L (98-107); COSMO 286; CREATININE 0.7 mg/dL (0.5-0.9); ESTIMATED GFR > 60; GLUCOSE 100 mg/dL (70-104); MAGNESIUM 1.8 mg/dL (1.5-2.7); POTASSIUM 3.9 mmol/L (3.5-5.1); SODIUM 141 mmol/L (136-145); TCO2 30 mmol/L (25-35)
[2018-09-25] MEDS: CENTRUM SILVER PO SCH (09:08)
[2018-09-25] MEDS: PRILOSEC PO SCH ×2 (09:08→20:51)
[2018-09-25] MEDS: ATIVAN PO SCH ×3 (09:08→20:51)
[2018-09-25] MEDS: PRINIVIL PO SCH (09:08)
[2018-09-25] MEDS: LOPRESSOR PO SCH ×2 (09:09→20:52)
[2018-09-25] MEDS: LASIX IV SCH ×2 (09:11→20:52)
[2018-09-25] MEDS: MYCOSTATIN SUSP PO SCH ×4 (09:11→20:52)
--- NOTE | 2018-09-25 10:38 | PROGRESS NOTE ---
DATE: 09/25/2018 SUBJECTIVE: Ms. Hogan had a good night. No further nausea. She is feeling better. Breathing comfortable. We moved her down to [facility]. OBJECTIVE: Vital Signs: Remains afebrile. Temperature 98.5 degrees, pulse 108, respirations 16, blood pressure 99/58. HEENT: Pupils are equal and round. Lungs: Clear in all lung knox. Cardiovascular Examination: Regular rhythm and rate without murmur or S3. Abdomen: Soft. Skin: Warm and dry. Lab: White count 8670, hematocrit 31, platelet count 368,000. Sodium 141, potassium 3.9, chloride 99, BUN 27, creatinine 0.7. ProBNP still 31,000. ASSESSMENT AND PLAN: 1. Severe aortic stenosis. Hemodynamics did not allow us to titrate medications much further. Low-dose lisinopril and metoprolol, and diuresing with 40 mg intravenous twice a day. I have added Aldactone. The plan is to see if we can pursue aortic valve replacement. 2. Nausea is better. Suspect underlying gastritis. 3. Coronary artery disease. No active ischemia, I think from her coronary lesions. 4. Hypercholesterolemia. 5. Looking at her orders, she is on lisinopril 5 mg once a day, Lasix 40 mg intravenous every 12, metoprolol 12.5 mg twice a day, multivitamin, Carafate 1 g every 4 hours, and tramadol 50 mg twice a day. cc: aZchary Rodriguez MD
[2018-09-25] MEDS: TYLENOL PO PRN (11:55)
[2018-09-25] MEDS ORDERED: MAGNESIUM SULFATE 2 GM/S.W.I. 2 GM/50 ML IVPB IV ONE (13:30)
--- NOTE | 2018-09-25 13:52 | CARDIOLOGY PROGRESS NOTE ---
DATE: 09/25/2018 SUBJECTIVE: Ms. Hogan continues to feel weak and have vague complaints of not feeling well. I had more in-depth discussions with her regarding this today, and I am wondering whether or not she may really be at her baseline. It seems more likely that she is. OBJECTIVE: Vital Signs: She is afebrile. Heart rate 94. Her blood pressure has shown systolics anywhere from the 80s to 90s recently. Her Is and Os continue to be negative. She has a total net negative out of 1.2 L. General: She is in no acute distress. Cardiovascular: She sounds to be in a regular rate and rhythm. She does have a 2/6 systolic murmur at the right upper sternal border with no lower extremity edema. Chest: Sounds clear bilaterally. She has no increased work of breathing. Abdomen: Soft, nontender. PERTINENT DATA: Her sodium is 141, potassium 3.9, BUN 27, creatinine 0.7, which continues to steadily improve. Her magnesium level is 1.8. ASSESSMENT: Ms. Hogan is an 82-year-old female with systolic heart failure and severe aortic stenosis. Her proBNP as of yesterday was trending down. She continues to have a negative fluid balance. We will continue diuresing the patient and hopefully sometime in the next 48 to 72 hours, we can get her out of the hospital. I have already contacted the valve clinic at [place] and they are going to recontact her to pursue reevaluation of her valve. cc: MD Zachary Nur MD MTDD
[2018-09-25] MEDS: ELAVIL PO SCH (20:52)
[2018-09-26] MEDS: ZOFRAN IV PRN ×3 (02:28→15:55)
[2018-09-26 05:56] LABS: AGAP 9; BUN 26 mg/dL (8-22); CALCIUM 8.9 mg/dL (8.8-10.2); CHLORIDE 93 mmol/L (98-107); COSMO 277; CREATININE 0.8 mg/dL (0.5-0.9); ESTIMATED GFR > 60; GLUCOSE 103 mg/dL (70-104); MAGNESIUM 2.1 mg/dL (1.5-2.7); POTASSIUM 3.8 mmol/L (3.5-5.1); SODIUM 136 mmol/L (136-145); TCO2 34 mmol/L (25-35)
[2018-09-26] MEDS ORDERED: CARAFATE LIQUID PO SCH (07:00)
[2018-09-26] MEDS: PRILOSEC PO SCH ×2 (08:40→21:15)
[2018-09-26] MEDS: LOPRESSOR PO SCH ×2 (08:40→21:15)
[2018-09-26] MEDS: LASIX IV SCH ×2 (08:40→21:15)
[2018-09-26] MEDS: CARAFATE LIQUID PO SCH ×4 (08:40→21:15)
[2018-09-26] MEDS: MYCOSTATIN SUSP PO SCH ×4 (08:40→21:16)
[2018-09-26] MEDS: PRINIVIL PO SCH ×2 (08:40→12:52)
[2018-09-26] MEDS: ATIVAN PO SCH ×3 (08:40→21:16)
[2018-09-26] MEDS: CENTRUM SILVER PO SCH (08:40)
--- NOTE | 2018-09-26 12:03 | EKG Report ---
Test Performed on : 09/26/2018 11:53:31 AM Test Reason : confirm rhythm Blood Pressure : / mmHG Vent. Rate : 092 BPM Atrial Rate : 092 BPM P-R Int : 152 ms QRS Dur : 090 ms QT Int : 382 ms P-R-T Axes : 032 -13 139 degrees QTc Int : 472 ms Normal sinus rhythm. Possible Left atrial enlargement Left ventricular hypertrophy with repolarization abnormality Inferior infarct , age undetermined Abnormal ECG When compared with ECG of 22-SEP-2018 07:30, Criteria for Septal infarct are no longer present Inferior infarct is now present Non-specific change in ST segment in Inferior leads T wave inversion more evident in Anterior leads Unconfirmed Result
--- NOTE | 2018-09-26 13:23 | CARDIOLOGY PROGRESS NOTE ---
DATE: 09/26/2018 CHIEF COMPLAINT: Patient says she feels a bit better today. She is still quite debilitated secondary to diffuse weakness. PHYSICAL EXAMINATION: Vital signs: She is afebrile. Heart rate of 95. Her systolic blood pressures are in the 80s to 90s. Intake and output: Her I Os have continued to be negative. Her total net output is 2.5 L. General: She is in no acute distress. Cardiovascular: She is in a regular rate and rhythm. She has a 2/6 systolic murmur at the right upper sternal border. She has no lower extremity edema. Warm and well-perfused extremities. Lungs: Her chest is clear bilaterally. No increased work of breathing. Abdomen: Soft, nontender. PERTINENT DATA: Sodium 136, potassium 3.8, BUN 26, creatinine 0.8 which is stable from yesterday. Her proBNP is 11,286 which is the lowest it has been. She had a peak of greater than 35,000. ASSESSMENT: Ms. Hogan is an 82-year-old female with a history of severe aortic stenosis and new heart failure. PLAN: She will continue on current medications. We will check chemistries in the morning as well as a BNP. I would recommend continuation of the current medication regimen. She continues to diurese. Hopefully, sometime in the next 24 to 48 hours, she could be discharged and follow up with the valve clinic for evaluation of her aortic stenosis. cc: MD Zachary Nur MD
[2018-09-26] MEDS: ULTRAM PO PRN (16:03)
--- NOTE | 2018-09-26 16:36 | PROGRESS NOTE ---
DATE: 09/26/2018 SUBJECTIVE: She says she has had a little more nausea this morning. Breathing is comfortable. She does feel overall better and a little stronger. OBJECTIVE: Vital Signs: Temperature 97.8 degrees, pulse 98, respirations 16, blood pressure 91/54. Eyes: Pupils are equal and round. Lungs: Clear in all lung knox. Cardiovascular exam: She has a 4/6 systolic ejection murmur radiating from the sternal notch up into her carotids. Abdomen: Soft. Skin: Warm and dry. : Urine output was 2500 mL. ASSESSMENT AND PLAN: 1. An 82-year-old female with a history of severe aortic stenosis presentation with new heart failure. Continue current medications and follow her proBNP. She continues to diurese. I think the plan is to discharge her with follow up with the Valve Clinic for evaluation for aortic stenosis. 2. Her nausea is better. 3. Coronary artery disease. No active cardiac ischemia. 4. Hypercholesterolemia. 5. Blood pressures look good. Appears to be diuresing well. Review of her orders: I do not see any change at this point. She is on Prinivil 5 mg a day, Lopressor 12.5 mg b.i.d. Getting Ultram p.r.n. pain, Lasix 40 mg IV q. 12 hours. Will repeat another chest x-ray in the morning. Continue to follow electrolytes. cc: Zachary Rodriguez MD
[2018-09-26] MEDS: MAALOX PLUS LIQUID PO SCH (16:48)
[2018-09-26] MEDS: ELAVIL PO SCH (21:16)
[2018-09-27] MEDS: CARAFATE LIQUID PO SCH ×5 (00:46→20:10)
[2018-09-27] MEDS: MAALOX PLUS LIQUID PO SCH ×5 (00:46→20:08)
[2018-09-27 06:59] LABS: AGAP 9; BUN 28 mg/dL (8-22); CALCIUM 8.8 mg/dL (8.8-10.2); CHLORIDE 93 mmol/L (98-107); COSMO 279; CREATININE 0.7 mg/dL (0.5-0.9); ESTIMATED GFR > 60; GLUCOSE 94 mg/dL (70-104); POTASSIUM 3.9 mmol/L (3.5-5.1); SODIUM 137 mmol/L (136-145); TCO2 35 mmol/L (25-35)
[2018-09-27] MEDS: PRINIVIL PO SCH (08:31)
[2018-09-27] MEDS: LOPRESSOR PO SCH ×2 (08:32→20:08)
[2018-09-27] MEDS: LASIX IV SCH ×2 (08:32→20:09)
[2018-09-27] MEDS: ATIVAN PO SCH ×3 (08:32→20:09)
[2018-09-27] MEDS: CENTRUM SILVER PO SCH (08:32)
[2018-09-27] MEDS: MYCOSTATIN SUSP PO SCH ×4 (08:32→20:08)
[2018-09-27] MEDS: PRILOSEC PO SCH ×2 (08:32→20:09)
--- NOTE | 2018-09-27 08:42 | Diag Imaging Result Doc PS360 ---
EXAM: CHEST-PORTABLE 09/27/2018 HISTORY: chf TECHNIQUE: AP portable at 0821 COMMENT: There is blunting of the left costophrenic angle which has improved since 09/21/2018. There is also diminished alveolar pulmonary edema generally. IMPRESSION: Improved pulmonary edema and left lower lobe atelectasis. Electronically signed by Bola Crump 09/27/2018 8:40 AM
--- NOTE | 2018-09-27 09:14 | PROGRESS NOTE ---
DATE: 09/27/2018 SUBJECTIVE: Ms. Hogan is comfortable. She says she has not had any nausea this morning and sitting up in the chair. She still has her Souza catheter in. She has a nasal cannula now, and breathing comfortably. She says she is pretty weak. OBJECTIVE: Temperature 98.5 degrees, pulse 100, respirations 16, and blood pressure 93/55. Pupils are equal and round. Lungs are clear anterior, lateral and posterior. No distended neck veins. Cardiovascular exam with regular rhythm and rate without murmur or S3. Abdomen is soft and nondistended. No pedal edema. LABORATORY: Reviewed the labs from yesterday, sodium 137, potassium 3.9, chloride 93, BUN 28, and creatinine 0.7. ProBNP has come down to 9236. Her chest x-ray from this morning improved pulmonary edema and left lower lobe atelectasis. ASSESSMENT AND PLAN: 1. An 82-year-old with a history of severe aortic stenosis, who presented with new onset of acute congestive heart failure. She is improving with diuresis. Continue to follow her proBNP and electrolytes. Renal function looks good. 2. Her nausea is better. 3. Coronary artery disease. No active cardiac ischemia detected. 4. Hypercholesterolemia. 5. Her blood pressures are running in the high 80s and 90s. She is on lisinopril. She is on Lopressor 12.5 mg b.i.d. and lisinopril 5 mg a day. She gets Elavil 25 mg at bedtime, Lasix 40 mg IV q.12 still, Carafate 1 g q.4 hours. We will change that to just 4 times a day. The goal is to diurese her a little bit more. It looks like she will have to go home and then get evaluated at the Valve Clinic. She has had an attempt before with a valve replacement, and had reaction of what looks like to anesthesia. She spiked a temperature of 106 degrees so they aborted that. This has been almost a year ago now. We will discuss with Cardiology. cc: Zachary Rodriguez MD
[2018-09-27] MEDS: CARAFATE PO SCH ×3 (12:37→20:09)
--- NOTE | 2018-09-27 13:41 | CARDIOLOGY PROGRESS NOTE ---
DATE: 09/27/2018 SUBJECTIVE: Ms. Hogan reports she is doing okay today. She has no pain complaints. She has a little bit weak. PHYSICAL EXAMINATION: Vital signs: The patient is afebrile. Heart rate of 89. Her blood pressure is 80/49. Her I's and O's are continuing to be negative on the order of 3.3 L total negative for the course of the hospitalization. General: She is in no acute distress. Cardiovascular: She sounds to be in a regular rate and rhythm. There is a 2 to 3/6 systolic murmur best heard at the right upper sternal border. She has no increased work of breathing. She has warm and well perfused extremities. Chest: Exam sounds clear bilaterally. She has no increased work of breathing. PERTINENT DATA: Her sodium is 137 potassium 3.9, BUN 28, creatinine 0.7 which has been stable over the last several days. Her proBNP is 9236, which is down from 11,286 yesterday. ASSESSMENT: Ms. Hogan is an 82-year-old female with severe aortic stenosis and systolic heart failure. PLAN: Patient seems to be stable at this point. I will discontinue her IV Lasix after her p.m. dose today and initiate oral Lasix starting in the morning and 40 mg p.o. b.i.d. We will recheck her laboratories in the morning. 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 cc: MD Zachary uNr MD
[2018-09-27] MEDS ORDERED: CALMOSEPTINE OINTMENT TOP PRN (18:52)
[2018-09-27] MEDS: ELAVIL PO SCH (20:09)
[2018-09-27] MEDS: ULTRAM PO PRN (21:48)
[2018-09-27] MEDS: ATIVAN IV PRN (23:25)
[2018-09-28] MEDS: CARAFATE LIQUID PO SCH (01:06)
[2018-09-28] MEDS: MAALOX PLUS LIQUID PO SCH ×5 (01:07→22:33)
[2018-09-28 05:42] LABS: AGAP 8; BUN 33 mg/dL (8-22); CALCIUM 8.9 mg/dL (8.8-10.2); CHLORIDE 92 mmol/L (98-107); COSMO 277; CREATININE 0.7 mg/dL (0.5-0.9); ESTIMATED GFR > 60; GLUCOSE 90 mg/dL (70-104); MAGNESIUM 2.3 mg/dL (1.5-2.7); POTASSIUM 4.2 mmol/L (3.5-5.1); SODIUM 135 mmol/L (136-145); TCO2 35 mmol/L (25-35)
[2018-09-28] MEDS: CARAFATE PO SCH ×5 (06:01→20:14)
[2018-09-28] MEDS: LOPRESSOR PO SCH ×2 (09:04→20:15)
[2018-09-28] MEDS: PRINIVIL PO SCH (09:04)
[2018-09-28] MEDS: LASIX PO SCH ×2 (09:04→20:15)
[2018-09-28] MEDS: PRILOSEC PO SCH ×2 (09:04→20:14)
[2018-09-28] MEDS: ATIVAN PO SCH ×3 (09:04→20:14)
[2018-09-28] MEDS: CENTRUM SILVER PO SCH (09:04)
[2018-09-28] MEDS: MYCOSTATIN SUSP PO SCH ×4 (09:04→20:14)
[2018-09-28] MEDS ORDERED: CARAFATE PO SCH (11:00)
--- NOTE | 2018-09-28 15:49 | PROGRESS NOTE ---
DATE: 09/28/2018 SUBJECTIVE: Ms. Hogan is feeling better. She is sitting up in a chair. Her son was there. She is breathing much more comfortably. No nausea this morning. PHYSICAL EXAMINATION: Vital signs: Remains afebrile, temperature 98.1 degrees, pulse 90, respirations 20, blood pressure 76/41. HEENT: Pupils are equal round. Lungs: Clear in all lung knox. Cardiovascular: Regular rhythm and rate without murmur or S3. Abdomen: Soft, nondistended. No pedal edema. LABORATORY DATA: Reviewed from the . Hematocrit stable 31. Electrolytes from today: Sodium 135, potassium 4.2, chloride 92, BUN 33, creatinine 0.7. ProBNP has come down to 1000. ASSESSMENT AND PLAN: 1. The patient is stable. Continue IV Lasix. I think we initiated p.o. Lasix 40 mg twice a day. Hopefully, can get her home tomorrow and she can go to the [facility] for follow-up aortic stenosis evaluation. 2. Nausea is better. 3. Coronary artery disease. No sign of acute ischemia at this time. 4. Hypercholesterolemia. 5. High Blood pressure. Her range of blood pressures between 76 and 78 over 41 to 52. Seems to be perfusing well. REVIEW OF HER ORDERS: I do not see any changes. cc: Zachary Rodriguez MD MTDD
[2018-09-28] MEDS: ELAVIL PO SCH (20:14)
[2018-09-29] MEDS: MAALOX PLUS LIQUID PO SCH ×6 (03:30→21:08)
[2018-09-29] MEDS: CARAFATE PO SCH ×5 (05:46→21:08)
[2018-09-29] MEDS: ATIVAN PO SCH ×3 (08:44→21:08)
[2018-09-29] MEDS: PRILOSEC PO SCH ×2 (08:44→21:08)
[2018-09-29] MEDS: PRINIVIL PO SCH (08:44)
[2018-09-29] MEDS: CENTRUM SILVER PO SCH (08:45)
[2018-09-29] MEDS: LASIX PO SCH (08:45)
[2018-09-29] MEDS: MYCOSTATIN SUSP PO SCH ×4 (08:45→21:08)
[2018-09-29] MEDS: LOPRESSOR PO SCH (08:45)
--- NOTE | 2018-09-29 09:33 | PROGRESS NOTE ---
DATE: 09/29/2018 Ms. Hogan says she does not feel real good today. She was sitting up in a chair. We had taken her Souza catheter out yesterday. She has nasal cannula on. She is breathing comfortably, but just feels weak and washed out. No complaints of pain. No chest pain. No complaints of palpitations. OBJECTIVE: Vitals: Temperature 97.7 degrees, pulse 93, respirations 14, blood pressure 85/47. HEENT: Pupils are equal and round. Lungs: Clear in all lung knox anterior and posterior and no wheezing. Cardiovascular: Regular rhythm and rate without murmur or S3. Abdomen: Soft. Skin: Warm and dry. Urine output was about 1100 mL. ASSESSMENT AND PLAN: 1. Severe aortic stenosis. We will continue present regimen. She is getting Lasix 40 mg p.o. b.i.d., Prinivil 5 mg a day, Lopressor 12.5 mg b.i.d. I think the goal is to try and get her to a rehab clinic, get assessed at the valve clinic as soon as we can as an outpatient and hopefully can pursue intraaortic valve replacement. 2. Hypertension. Blood pressure a little low at times, but seems to have better compensation. Her blood pressure is running in the mid 80s to mid 90s. 3. Suspect underlying chronic gastritis. Continue her Carafate and her proton pump inhibitor. 4. There is some anxiety. She is concerned about her need for valve replacement, so continue the Ativan. I think she is getting that 3 times a day. Her electrolytes look good. Creatinine is 0.7, sodium 135, potassium 4.2, chloride 92, BUN 33[place] [address] still. cc: Zachary Rodriguez MD
--- NOTE | 2018-09-29 16:47 | CARDIOLOGY PROGRESS NOTE ---
DATE: 09/29/2018 SUBJECTIVE: Ms. Hogan continues to be quite weak. She is ambulating in the mendieta. She has no specific complaints of chest pain, shortness of breath or orthopnea. OBJECTIVE: Vital Signs: On physical, she is afebrile. Her heart rates are in the 80s to 90s. Her blood pressure is 85/48. Most of her systolics appear to be in the 80s to 90s. Her intakes and outputs continue to be on the negative side. Her total net negative out is 3.5 liters. General: Generally, no acute distress. Cardiovascular: She sounds to be in a regular rate and rhythm with a 2/6 systolic murmur at the right upper sternal border. Extremities: She has no lower extremity edema. She has warm and well-perfused extremities. Chest: Clear bilaterally. She has no increased work of breathing. Abdomen: Soft, nontender, nondistended. She has no obvious organomegaly. PERTINENT DATA: She has no new chemistry data from today. ASSESSMENT: Ms. Hogan is an 82-year-old female, who has severe aortic stenosis and systolic heart failure. PLAN: She is on a very low dose of lisinopril, oral furosemide and metoprolol at 12.5 b.i.d. She is relatively hypotensive, but she seems to be maintaining her volume status. I have already made arrangements for the [facility] in [place] to follow up with the patient, and she will do so as an outpatient. Once stable from a primary team standpoint, I believe the patient could be discharged. cc: MD Zachary Nur MD
[2018-09-29] MEDS: ELAVIL PO SCH (21:08)
[2018-09-29] MEDS: TYLENOL PO PRN (22:51)
[2018-09-29] MEDS: ATIVAN IV PRN (23:54)
[2018-09-30] MEDS: LASIX PO SCH ×2 (00:52→08:34)
[2018-09-30] MEDS: LOPRESSOR PO SCH ×2 (00:53→08:34)
[2018-09-30] MEDS: MAALOX PLUS LIQUID PO SCH ×2 (00:53→04:09)
[2018-09-30 06:00] LABS: CALCIUM 8.8 mg/dL (8.8-10.2); CREATININE 0.9 mg/dL (0.5-0.9)
[2018-09-30] MEDS: CARAFATE PO SCH (06:08)
[2018-09-30 08:16] VITALS: BP 87/52
[2018-09-30] MEDS: CENTRUM SILVER PO SCH (08:33)
[2018-09-30] MEDS: PRILOSEC PO SCH (08:33)
[2018-09-30] MEDS: PRINIVIL PO SCH (08:34)
[2018-09-30] MEDS: ATIVAN PO SCH (08:34)
[2018-09-30] MEDS: MYCOSTATIN SUSP PO SCH (08:35)
--- NOTE | 2018-09-30 08:57 | DISCHARGE SUMMARY ---
ADMISSION DATE: 09/18/2018 DISCHARGE DATE: 09/30/2018 HOSPITAL COURSE: She is a long-standing patient of mine. We have known she has aortic stenosis. A year ago, they were planning on doing an aortic valve replacement. She spiked a fever right before on the table, but before they were going to do the surgery. By report fever went up to 106. I am not sure they found an etiology. They were suspecting some type of reaction to anesthesia. She went home and actually has done fairly well for 6 months or so, but presented at this time. She has been having more falls, weak spells, and blood pressure has been running in the 90s/50s at home. She denies chest pain or palpitations. PAST MEDICAL HISTORY: 1. Hypercholesterolemia. 2. Coronary artery disease. She had stents placed in 2013. Abnormal stress test in 2015. Heart catheterization did not show any restenosis. ADMISSION DIAGNOSIS: Recent fall, weakness, drop in blood pressure suspicious for progression of aortic stenosis. We did an echocardiogram. Cardiology evaluated and she had moderate to severe fibrocalcific changes in the aortic valve leaflets demonstrating reduced aortic valve leaflet mobility. Her gradient across the aortic valve is 58 mmHg, mean gradient was 35. Calculated aortic valve area was 0.6 cm2 suggesting severe aortic stenosis. Had moderate mitral annular calcification, demonstrated mild to moderate mitral regurgitation. Tricuspid and pulmonic valve with no evidence of structure abnormality. Her pulmonary pressure was 60 mmHg suggesting pulmonary hypertension. Normal left ventricular chamber size, but estimated ejection fraction is about 30% to 35%. Severe hypokinesis of the apical anterior septal region and apex. Left atrium moderately enlarged. No pericardial effusion. She was diuresed and medications were adjusted to try and optimize her afterload and she did show improvement. She had some nausea and I suspect she has chronic gastritis. She underwent cardiac catheterization on 09/22 and she has very small vessels with some questionable disease in the mild left anterior descending, as well as circumflex vessel. The results were discussed with [facility] and recommended that she get followed up in consideration for valve replacement again, possibly intra-aortic valve replacement. She remained fairly weak. The nausea improved. [place] she could go to rehab on 09/30/2018. DISCHARGE MEDICATIONS: She can have Maalox p.r.n. p.o. q. 6 hours, Elavil 25 mg at bedtime, Lasix 40 mg p.o. b.i.d., Prinivil 5 mg a day, Ativan 0.5 mg she was taking 3 times a day for anxiety, Centrum Silver 1 a day, Carafate 1 g p.o. before meals and at bedtime tablets, and tramadol 50 mg b.i.d. p.r.n. DISCHARGE DISPOSITION: So we will send her over to [facility] over in [place]. She is scheduled for follow-up for valve replacement evaluation in the next couple weeks, and will continue her physical therapy. I will continue her O2 at 2 L per nasal cannula. cc: Zachary Rodriguez MD
== END 2018-09-30 10:30 | DRG 280 ==
LOC: DIRADM 11:27 → 4N 13:53 → ICU 09-19 05:25 → 3S 09-24 17:51
PROVIDERS: ADMIT Emergency Medicine; ATTEND Emergency Medicine
CPT/HCPCS: 71010; 71020; 71045; 71046; 80048; 80053; 81001; 82550; 82553; 82607; 82746; 82805; 83735; 83880; 84436; 84443; 84484; 85025; 85610; 87088; 93005; 93010; 93306; 93460; 94660; 94761; 97110; 97116; 97161; 97530; A9270; C8929; J0692; J1170; J1644; J1650; J1940; J2060; J2250; J2405; J3475; J7030; J7040; Q9957; Q9967

== ENCOUNTER 2018-12-10 23:35 | Inpatient (IN) ==
[2018-12-10] MEDS ORDERED: DUONEB (A & A) INH ONE (23:44)
[2018-12-11] MEDS ORDERED: LASIX IV ONE (00:07)
[2018-12-11] MEDS ORDERED: LASIX ONE (00:10)
[2018-12-11 00:19] LABS: BASO# 0.11 X1000 (0.0-0.2); BASO% 1.4 % (0.0-0.8); EOS# 0.77 X1000 (0.0-0.7); EOS% 9.9 % (0.0-10.0); HEMATOCRIT 30.1 % (37.0-47.0); HEMOGLOBIN 9.4 g/dL (12.0-16.0); LYMPH# 5.11 X1000 (1.2-3.4); LYMPH% 65.5 % (20.5-51.1); MCH 32.2 PG (27-31); MCHC 31.2 g/dL (33-37); MCV 103.1 FL (81-99); MONO# 0.97 X1000 (0.11-0.59); MONO% 12.4 % (1.7-9.3); MPV 10.1 FL (7.4-10.4); NEUT# 0.84 X1000 (1.4-6.5); NEUT% 10.8 % (42.2-75.2); PLT 418 X1000 (130-400); RBC 2.92 XMIL (4.2-5.4); RDW 19.5 % (11.5-14.5)
[2018-12-11] MEDS ORDERED: NITROGLYCERIN TOP ONE (00:20)
[2018-12-11] MEDS ORDERED: LABETALOL IV ONE (00:21)
[2018-12-11] MEDS ORDERED: NITROGLYCERIN ONE (00:23)
[2018-12-11] MEDS ORDERED: ZOFRAN IV ONE (00:25)
[2018-12-11 00:34] LABS: ALLEN TEST YES; BLOOD TYPE ARTERIAL; HCO3-(ACT) 22.6 mmoll (20.0-26.0); METHB 0.7 % (0.0-1.5); O2(CT) 14.5 mL/dL (15.0-23.0); O2HB 98.2 % (95.0-99.0); PO2(98.6) 440 mmHg (60-100); SAMPLE BLOOD; SAO2 100.5 % (95.0-100.0); THB 9.6 g/dL (11.5-17.4); pH(98.6) 7.25 (7.35-7.45)
[2018-12-11 00:35] LABS: MODALITY BI PAP
[2018-12-11 00:37] LABS: PCO2(98.6) 56 mmHg (35-45)
[2018-12-11] MEDS ORDERED: ROCEPHIN 1 GM in NS 50 ML IV ONE (01:11)
[2018-12-11 01:31] LABS: AGAP 10; ALB/GLOB RATIO 0.5; ALBUMIN 2.8 g/dL (3.5-5.0); ALKALINE PHOSPHATASE 135 U/L (32-104); BUN 16 mg/dL (8-22); CALCIUM 8.1 mg/dL (8.8-10.2); CHLORIDE 100 mmol/L (98-107); COSMO 275; CREATININE 0.8 mg/dL (0.5-0.9); ESTIMATED GFR > 60; GLUCOSE 232 mg/dL (70-104); GOT 19 U/L (10-30); GPT 8 U/L (10-36); POTASSIUM 4.7 mmol/L (3.5-5.1); SODIUM 133 mmol/L (136-145); TCO2 23 mmol/L (25-35); TOTAL BILIRUBIN 0.29 mg/dL (0.20-1.00)
[2018-12-11 01:53] LABS: URINE SOURCE CLEAN CATCH
[2018-12-11 02:12] LABS: BILIRUBIN URINE NEGATIVE (NEGATIVE); BLOOD URINE NEGATIVE (NEGATIVE); COLOR STRAW; GLUCOSE URINE NEGATIVE (NEGATIVE); KETONE URINE NEGATIVE (NEGATIVE); LEUKOCYTES URINE NEGATIVE (NEGATIVE); NITRITE URINE NEGATIVE (NEGATIVE); PROTEIN URINE NEGATIVE (NEGATIVE); TURBIDITY URINE CLEAR (CLEAR); UR EPITHELIAL CELLS <10 /HPF (<10); URINE BACTERIA NEGATIVE /HPF; URINE RBC <10 /HPF (<10); URINE WBC <10 /HPF (<10); UROBILINOGEN URINE NORMAL (NORMAL)
[2018-12-11 04:50] LABS: INR 0.99; PROTIME 13.9 Seconds (11.0-16.0)
[2018-12-11 04:51] LABS: PTT 32.7 Seconds (22.3-41.8)
[2018-12-11] MEDS ORDERED: ZOFRAN IV PRN (05:19)
[2018-12-11] MEDS ORDERED: TYLENOL PO PRN (05:23)
[2018-12-11] MEDS ORDERED: DUONEB (A & A) INH PRN (05:25)
[2018-12-11] MEDS: LOVENOX SUBQ SCH (06:21)
[2018-12-11] MEDS: PRILOSEC PO SCH (06:21)
--- NOTE | 2018-12-11 06:27 | Diag Imaging Result Doc PS360 ---
CHEST-PORTABLE - 12/10/2018 INDICATION: sob COMPARISON: 09/27/2018 FINDINGS: There is cardiomegaly and pulmonary vascular congestion. There are extensive bilateral interstitial infiltrates. There are trace pleural effusions. IMPRESSION: Cardiomegaly, pulmonary edema, trace pleural effusions. Electronically signed by Reyes Newman 12/11/2018 6:24 AM
--- NOTE | 2018-12-11 07:23 | EKG Report ---
Test Performed on : 12/10/2018 11:48:55 PM Test Reason : sob Blood Pressure : / mmHG Vent. Rate : 144 BPM Atrial Rate : 144 BPM P-R Int : 136 ms QRS Dur : 086 ms QT Int : 326 ms P-R-T Axes : 029 005 146 degrees QTc Int : 504 ms Sinus tachycardia. Possible Left atrial enlargement ST & T wave abnormality, consider inferolateral ischemia Abnormal ECG When compared with ECG of 26-SEP-2018 11:53, Vent. rate has increased BY [address] less depressed in Anterior leads T wave inversion less evident in Anterior leads Unconfirmed Result
--- NOTE | 2018-12-11 07:34 | Diag Imaging Result Doc PS360 ---
EXAM: CT ANGIOGRM PULMONARY ARTERIES HISTORY: tachpnia, tachycardia TECHNIQUE: CT chest with intravenous contrast. Pulmonary two protocol with MIP images. COMPARISON: 09/05/2017 FINDINGS: There are small bilateral pleural effusions measuring approximately 1.5 cm posteriorly and inferiorly in the midline. The one on the right is larger than on the prior study where as the one on the left is slightly smaller. The heart is enlarged. No aortic dissection. There are prominent mediastinal lymph nodes which are larger than on the prior study. The vasculature is distended. There are groundglass infiltrates within both lungs. Limited images through the upper abdomen reveal at least a moderately distended gallbladder. IMPRESSION: 1.No pulmonary emboli 2.Cardiomegaly with pulmonary edema and pleural effusions consistent with congestive heart failure. 3.Mediastinal adenopathy is slightly more prominent than on the prior study. 4.A preliminary report was given at 3:27 AM This exam was performed using automated exposure control, adjustment of mA or kV according to patient size, and/or use of iterative reconstruction technique. Electronically signed by Tab Alba 12/11/2018 7:32 AM
[2018-12-11 07:59] LABS: ALLEN TEST YES; BE 7.1 mmoll (-3.0-3.0); BLOOD TYPE ARTERIAL; HCO3-(ACT) 30.5 mmoll (20.0-26.0); METHB 0.7 % (0.0-1.5); O2(CT) 11.2 mL/dL (15.0-23.0); O2HB 97.2 % (95.0-99.0); PCO2(98.6) 42 mmHg (35-45); PO2(98.6) 113 mmHg (60-100); SAMPLE BLOOD; SAO2 99.3 % (95.0-100.0); pH(98.6) 7.48 (7.35-7.45)
[2018-12-11 08:00] LABS: MODALITY CANNULA
--- NOTE | 2018-12-11 08:01 | EKG Report ---
Test Performed on : 12/11/2018 07:55:21 AM Test Reason : CHD Exacerbation Blood Pressure : / mmHG Vent. Rate : 095 BPM Atrial Rate : 095 BPM P-R Int : 162 ms QRS Dur : 088 ms QT Int : 382 ms P-R-T Axes : 037 -06 169 degrees QTc Int : 480 ms Normal sinus rhythm. Left ventricular hypertrophy with repolarization abnormality Abnormal ECG No previous ECGs available Confirmed by Jennifer ELIAS, Zachary Gonzalez ([id number]) on 12/13/2018 9:40:50 AM
--- NOTE | 2018-12-11 08:01 | HISTORY AND PHYSICAL ---
PRIMARY CARE PROVIDER: Dr. Zachary Rodriguez MD ORAL SURGERY TECHNICIAN: Dr. Robb Cordoba at the [facility] CHIEF COMPLAINT: Shortness of breath. HISTORY OF PRESENT ILLNESS: Ms. Hogan is an 83-year-old female with a known history of coronary artery disease as well as congestive heart failure with aortic stenosis. The patient was admitted to our facility in September of 2018 for complications of congestive heart failure. She was most recently admitted to [facility] in mid November for which she was treated for CHF exacerbation with respiratory failure which required intubation. From what I understand according to the patient and the patient's son at bedside, due to her aortic stenosis, she has been recommended to have aortic valve replacement. This was initially planned approximately 1 year ago though due to possibly an adverse reaction to anesthesia they were unable to perform the surgery. Since that time, the patient has had a few episodes of heart failure exacerbation for which she had to be admitted for. Most recently in mid November when she was admitted to [facility], they did perform what I believe is a balloon aortic valvuloplasty. Her son at bedside states that since this procedure and her being discharged from the hospital, that she has been doing much better. She went to rehab and was discharged from rehab within the last 2 weeks. The patient was discharged from [facility] with medications of 81 mg aspirin daily, 3.125 mg of Coreg twice daily as well as 40 mg of Lasix p.o. daily. Though at this time, the patient's states that she has only been taking her Coreg and Protonix. He reports that this is what she was instructed to take by the physician that discharged her from rehab, and that she is not currently taking any Lasix daily. They report that since she was discharged from rehab, she had been at home and Home Health had been coming out to her house. The patient reports that she had been doing well though last night at approximately 9:30 to 10:00 in the evening, she did have a sudden onset of shortness of breath and chest tightness. The patient states she became very distressed, and they did call EMS. Reportedly, on scene, EMS did get a room air oxygen saturation of 83%. The patient denies any headache, dizziness, or cough. She did report shortness of breath as mentioned as well as chest tightness that began at the same time as her shortness of breath. The patient states that since arriving to the hospital and her dyspnea has improved, her chest tightness has subsided and has not returned. She reports some nausea though denied any vomiting. The patient denies any abdominal pain, or any reports of abdominal distention or swelling. She denies any chest pain. She denies any diarrhea or constipation. The patient states she did have a bowel movement yesterday. She denies any hematochezia or melena. She denies any dysuria or urinary frequency. She denies any pain, numbness, tingling or swelling in extremities. The patient denies any recent weight gain, or her clothes fitting tightly. She denies any worsening orthopnea or paroxysmal nocturnal dyspnea. The patient states that she does sleep in a bed, and uses a couple of pillows though she has not had to increase the amount of pillows that she has been propping up with. Upon arrival to the ER, initial vital signs were temperature 97.6 degrees, heart rate, 141, respirations 42, and blood pressure was 173/110. She was 100% oxygen saturation on BiPAP. Initial blood gases did reveal that she was hypercapnic though pCO2 of 56, pH was 7.25. She did have a negative troponin though her proBNP is 28,505. Chest x-ray did show findings of what appeared to be pulmonary edema. Her D-dimer was slightly elevated as well as at 1.54. Given her respiratory symptoms as well as this, they did perform a CT angiogram of pulmonary arteries which showed no pulmonary embolus though she did have interstitial thickening and widespread ground- glass opacities throughout both lungs which the findings were suggesting heart failure. There was also mediastinal adenopathy slightly more prominent than seen previously. The patient was given medications of nitro paste 1 inch, Lasix 40 mg IV and labetalol 10 mg IV. Since these medications have been given, the patient's respiratory status has markedly improved. She is now on the nasal cannula tolerating this well. The patient is actually slightly reclined back in the bed, and is not in any respiratory distress. She is able to speak in full sentences. She states that she feels much better as well. She is on nasal cannula at 4 L with oxygen saturation of 98 percent. Her heart rate has improved as well with the last reading of 97 as well as her blood pressure has improved with the last reading of 111/73. Her EKG showed a sinus tachycardia at a rate of 144. There was possible left atrial enlargement. There does appear to be some slight ST depression noted in V4, V5 and V6 though this was present on a previous EKG in September of 2018. At this time, the patient will be placed in ICU for close monitoring. REVIEW OF SYSTEMS: A 14 point review of systems was conducted with the patient. All were negative except for pertinent positives mentioned above in HPI. PAST MEDICAL HISTORY: 1. Congestive heart failure. 2. Coronary artery disease, status post stent placement x2. 3. Hyperlipidemia. 4. Aortic stenosis. PAST SURGICAL HISTORY: 1. Cardiac stent placement x2. 2. Recent surgery to help with aortic stenosis performed at [facility] from what I understand may possibly have been a balloon aortic valvuloplasty. 3. A recent cholecystostomy for which she states she did have a drain placed for 6 weeks, and has since been removed. This was performed at [facility] during her most recent admission. SOCIAL HISTORY: The patient does live at home alone. She does have 2 sons that live close by, and do help take care of her. She has home health that comes out to her house at this time. There is no known history of tobacco, alcohol or illicit drug use. FAMILY HISTORY: Positive for her mother having a history of hypertension and stroke. Her father lived to be in his 90s, and was otherwise healthy and secondary from natural causes and old age. ALLERGIES: Patient has allergies to Levaquin and penicillins. HOME MEDICATIONS: 1. Aspirin 81 mg p.o. daily. 2. Coreg 3.125 mg p.o. b.i.d. 3. Colace 100 mg p.o. b.i.d. 4. Lasix 40 mg p.o. daily. 5. Centrum Silver multivitamin 1 p.o. daily. 6. Zofran 4 mg p.o. q.6 hours p.r.n. 7. Protonix 40 mg p.o. daily. 8. Carafate 1 g p.o. q.6 hours. 9. Ambien 10 mg p.o. at bedtime. We would like to note that this list was her medication list that was prescribed upon discharge from [facility] though her son states that most recently when she was discharged from rehab they only instructed her to continue taking her Protonix and Coreg, and that she has not been taking any of the other medicines recently since being discharged from rehab. DIAGNOSTIC DATA/LABORATORY RESULTS: White blood cell count 7.8, hemoglobin 9.4, hematocrit 30.1, and platelet count is 418,000. PT 13.9, INR 0.99. PTT is 32.7. D-dimer 1.54. Sodium 133, potassium 4.7, chloride 107, and bicarb is 23, BUN 16, creatinine 0.8, GFR greater than 60. Glucose 232. Calcium 8.1. Liver function tests within normal limits. Alkaline phosphatase is slightly elevated at 135. Troponin less than 0.01. ProBNP 08204. Plasma lactate 2.3. Arterial blood gases were obtained on BiPAP with 100% FiO2 with a pH of 7.25, pCO2 56, PO2 is 440. HC03 is 22.6 with a base excess of -3. O2 saturation was 100.5. Urinalysis was obtained via clean catch, was negative for protein, glucose, ketones, blood, nitrites, leukocytes, white blood cells, or bacteria. Chest x-ray performed in the ER did show finding suggestive of pulmonary edema. We are awaiting official radiology over-read. CT angiogram pulmonary arteries did show interstitial thickening and widespread ground-glass opacities throughout both lungs. Findings were suggesting heart failure. There is no pulmonary embolus. There is mediastinal adenopathy slightly more prominent than seen previously. The etiology is indeterminate. Please see CT report for full findings. PHYSICAL EXAMINATION: VITAL SIGNS: Temperature 97.6 degrees, heart rate 108, respirations 22, blood pressure 111/73, oxygen saturation is 99% on nasal cannula at 4 L. GENERAL: Ms. Hogan is an 83-year-old female. She was resting in the ER stretcher. Upon my examination, her respiratory status has markedly improved from what was described when she arrived to the ER. She is resting in bed slightly reclined and is in no respiratory distress. She is awake and alert, and able to answer questions appropriately. HEENT: Head is atraumatic, normocephalic. Pupils are equal, round, and reactive to light, and were 3 mm bilaterally and brisk. Oral mucosa was moist. Oropharynx was clear. NECK: Supple. Trachea midline. There is no overt JVD noted at this time or hepato jugular reflux. CARDIOVASCULAR: Patient has S1-S2 present. She does have a murmur noted though she does have a slightly tachycardic rate that is regular. PULMONARY: The patient has symmetrical chest expansion bilaterally. Lung sounds in upper lung knox were clear to auscultation in bilateral lower lung knox. She did have fine crackles noted. ABDOMEN: Soft. Nondistended. Nontender. Bowel sounds are present in all 4 quadrants, and were normoactive. EXTREMITIES: No cyanosis, clubbing, or edema noted. Pulse, motor, and sensory were intact in all extremities. Radial pulses and pedal pulses were 2+ bilaterally. INTEGUMENTARY: The patient's skin is pink, warm, and dry. NEUROLOGICAL: Patient is alert and oriented to person, place, time, and situation. She is able to move all extremities and there does not appear to be any focal neurological deficits noted. ASSESSMENT AND PLAN: 1. CHF exacerbation. The patient does have a most recently documented ejection fraction of 30 to 35 percent on 09/19/2018. She does have known history of aortic stenosis and was recently discharged from [facility] in mid November for which she was treated for heart failure exacerbation, respiratory failure which did require intubation, and did undergo what I believe is a balloon aortic valvuloplasty. She is followed by Dr. Cordoba and Dr. Beck with Interventional Cardiology at [facility] had also seen her as well. Since being discharged from [facility], the patient states that she was instructed upon discharge from rehab to only take medications of Protonix and Coreg. She has not been taking her Lasix recently. Previously mentioned, she did report a sudden onset of shortness of breath that began at 10:00 in the evening last night. She does have radiology finding suggestive of pulmonary edema. ProBNP was elevated at 28,505. The patient reports chest tightness as well though since being given IV Lasix, topical nitro paste, and being placed on BiPAP, the patient's respiratory status and chest tightness have improved. She is currently resting comfortably and on nasal cannula at 4 L. At the time of my examination, since receiving Lasix and the Souza catheter being placed, she has had approximately 900 mL of urine output noted in Souza drainage bag. For further treatment evaluation, she will be placed in the ICU for close monitoring. We will do daily weights, and strict intake and output. We will continue with Lasix 40 mg IV q.12 hours. We will continue her Coreg and her aspirin as well. We will repeat an echocardiogram and EKG in the morning. We will also do a series of cardiac enzymes. We have placed a consult with Cardiology with Dr. Suggs. We will await their evaluation and further recommendations for management. 2. Coronary artery disease. We will continue with treatment as mentioned above. 3. We have continued her aspirin and Coreg. The patient does not have any acute EKG changes noted at this time when compared to previous EKG in September of 2018. She is not reporting any chest pain at this time. 4. Acute hypoxic and hypercapnic respiratory failure. The patient was initially on BiPAP though since she has been given medicines as mentioned above, her respiratory status has improved. She has been able to be weaned down to nasal cannula, and is tolerating this well. We will repeat an ABG later on in the morning. We will continue to monitor this closely. 5. Deep vein thrombosis prophylaxis will be provided with Lovenox 40 mg subcutaneously q.24 hours. 6. The patient has been placed in ICU for close monitoring. We will do vital signs per ICU protocol. We will repeat a BMP, magnesium, ABG< and an EKG later on this morning. Further orders and recommendations pending hospital course, diagnostic studies, and physician evaluation. TIME SPENT: Critical Care time for this patient was 60 minutes. Dictated by PARISH Healy for Derrick Spring MD cc: MD Zachary Hanley MD
[2018-12-11 08:10] LABS: CALCIUM 8.2 mg/dL (8.8-10.2); CREATININE 0.9 mg/dL (0.5-0.9); MAGNESIUM 1.8 mg/dL (1.5-2.7); POTASSIUM 3.9 mmol/L (3.5-5.1)
[2018-12-11] MEDS: ASPIRIN PO SCH (09:12)
[2018-12-11] MEDS: COREG PO SCH ×2 (09:12→21:05)
[2018-12-11] MEDS: COLACE PO SCH ×2 (09:12→21:05)
[2018-12-11] MEDS: CENTRUM SILVER PO SCH (09:12)
--- NOTE | 2018-12-11 10:49 | PROGRESS NOTE ---
DATE: 12/11/2018 SUBJECTIVE: was admitted early this morning, an 83-year-old patient of mine. She is followed by Dr. Zamudio, who is stagecraft teacher in [place]. Presented with shortness of breath. She has known history of coronary artery disease and congestive heart failure with aortic stenosis. Was admitted to our facility in September 2018 for complications of congestive heart failure. She was most recently admitted to [facility] in November, was treated for congestive heart failure exacerbation and respiratory failure, required intubation. Due to her aortic stenosis she has been recommended to have aortic valve replacement. This was initially planned approximately a year ago, but she had an adverse reaction when they had her on the table ready to do surgery and they canceled it. Since that time, she has had a few episodes of heart failure, most recently in November admitted at [facility]. I believe they performed a balloon aortic valvuloplasty. She went to rehab, was discharged from rehab 2 weeks ago. The patient discharged from [facility]. MEDICATIONS: Aspirin 81 mg a day, Coreg 3.125 mg twice a day as well as 40 mg of Lasix daily. She has been taking Coreg and Protonix. She was instructed at discharge, was not taking Lasix daily I believe. Since she is discharged from rehab she has been doing fairly well until the evening of I think 12/10/2018 about 9:30, sudden onset of shortness of breath and chest tightness, became distressed and came to the emergency room. O2 sats were 83%. Denies any headache, dizziness or cough. Reported shortness of breath and chest tightness and was admitted to the hospital. The dyspnea is better this morning. She feels better. ProBNP was 28,000. CT angiogram of the pulmonary arteries did not show any pulmonary emboli, did have interstitial thickening, widespread ground-glass opacity throughout both lungs suggestive of pulmonary venous hypertension. OBJECTIVE: Vital Signs: Her temp is 98.8, pulse 95, respirations 24 and blood pressure 108/57. HEENT: Pupils are equal. Lungs: She was getting an echocardiogram. I did not see any wheezing or prolonged expiratory phase. Did not listen to her heart and lungs at this time. Did not have any pedal edema. No abdominal distension. LABORATORY: Sodium 130, this was from yesterday. Sodium 137, potassium 3.9, chloride 100, bicarb 29, BUN 15, creatinine 0.9. White blood cell count 7800, hematocrit 30, hemoglobin 9.4, platelet count 418,000. Note she has an MCV of 103. Urinalysis was unremarkable. Blood gases on presentation: pH is 7.48, pCO2 42, PO2 was 113, O2 saturations were 99%, that was on 4 L, 36% FiO2, on BiPAP 15/4 pressures. Her chest x-ray is consistent with pulmonary edema and mild pleural effusions and pulmonary arteriogram no pulmonary emboli. Cardiomegaly with pulmonary edema and pleural effusions consistent with congestive heart failure. Mediastinal adenopathy more prominent than prior study. ASSESSMENT AND PLAN: 1. Aortic stenosis. The report is that she has had aortic valve balloon angioplasty or valvoplasty, but I do not know the details on that. She has underlying severe aortic stenosis. We will get an echocardiogram, assess left ventricular function and valvular function and Cardiology involved, Dr. Bee. 2. History of coronary artery disease ,[place]. 3. Acute hypoxemic hypercapnic respiratory failure for which she was on BiPAP. Air exchange is better at the present time with diuresis. 4. Review of her orders: She is on aspirin 81 mg a day, Coreg 3.125 mg b.i.d., Colace 100 mg b.i.d., Lasix 40 mg IV q.12h, multivitamin 1 a day, Prilosec 20 mg daily, nitroglycerin 1 inch topically, just a one time dose, treating her with ceftriaxone 1 g, she was given one dose yesterday. I do not see any active infection at this point. cc: Zachary Rodriguez MD
[2018-12-11] MEDS: LASIX IV SCH ×2 (11:09→23:10)
--- NOTE | 2018-12-11 13:27 | ECHO REPORT ---
ORDER DATE: 12/11/2018 INDICATION: 1. Respiratory failure. CHF exacerbation. FINDINGS: 1. The right atrium appears normal in size at 3.2 cm. 2. Mild tricuspid regurgitation. RV systolic pressure of 25. 3. Normal RV size and systolic function. 4. No significant pulmonic insufficiency. 5. Normal left atrial size with a dimension of 3.9 cm and a volume index of 21. 6. No mitral prolapse. Heavy mitral annular calcification. Mild to moderate mitral regurgitation. No evidence of mitral stenosis. 7. Normal LV size, end-diastolic dimension of 4.1. Suggestion of mild left ventricular hypertrophy with a posterior and interventricular septal wall thickness of 1.1 and 1.2 cm respectively. There is reduction in LV systolic function with an estimated EF of 35% to 40%. This appears slightly better than the previous study in September 2018. 8. Aortic valve is heavily calcified with restriction in motion. Peak gradient across the valve is 47 with a mean of 34. Previous gradients were 58 and 35, respectively. The valve area on this current study is 0.6 cm2 which appears consistent with the previous. The dimensionless index is 0.28. This would suggest possible moderate aortic stenosis vs possibly low output severe aortic stenosis. No significant aortic insufficiency. 9. Aorta appears normal in visualized segments. 10. No pericardial effusion identified. cc: MD Zachary Nur MD MTDD
--- NOTE | 2018-12-11 15:40 | CARDIOLOGY CONSULTATION ---
DATE: 12/11/2018 CONSULTATION REQUESTED BY: Hospitalist service, Dr. Rodriguez. REASON FOR CONSULTATION: A patient with pulmonary edema, dyspnea. HISTORY OF PRESENT ILLNESS: Ms. Hogan presented to the emergency room department today, actually at 11:40 p.m. last night with complaints of relatively sudden onset of dyspnea. Upon presentation, they did a chest x-ray that shows cardiomegaly with pulmonary edema. They did for unknown reasons a CT of the chest with pulmonary arteriogram protocol which ruled out pulmonary emboli. There is cardiomegaly with bilateral pulmonary edema, mediastinal adenopathy and pleural effusions. The patient has been given Lasix and she has improved. Her first EKG shows sinus tachycardia, rate 144 beats per minute with diffuse repolarization abnormalities. She had a 2nd EKG done at 7:55 this morning that shows sinus rhythm, rate 95 beats per minute with diffuse repolarization abnormality. The patient denies having chest pain. She said that she has been doing relatively well for the past couple of weeks. She denies having significant swelling or syncope. PAST MEDICAL HISTORY: Her past history is significant for severe coronary heart disease. She had previous stents. Details of this are not readily available to me at this time. However, in the past, she has been seen by Dr. Elvis Soliz who performed stenting. Her last heart catheterization was performed in September of this year by Dr. Riley Guthrie. Prior to that in September 2017, Dr. Soliz did a heart catheterization in [place] and recommended to the patient to pursue coronary bypass surgery and aortic valve replacement. The procedure could not be carried out because on the day of the surgical intervention, the patient developed a fever while she was on the OR table and they canceled the surgery. That happened in September 2017. Since then, the patient has been evaluated as a possible candidate for TAVR and in October of this year, they performed emergency balloon VALVULOPLASTY of the aortic valve to buy some time and allow her to get better since she had just been admitted to [facility] with congestive heart failure and decompensation of her general condition. Her ejection fraction has dropped significantly over the course of the past 12 months from a hyperdynamic ventricle, ejection fraction of 65 to 70 percent in September 2017, down to the 30 to 35 percent ejection fraction. The echo done on 12/11/2018, which is today, has been reported already as indicating that her ejection fraction is low at 35 to 40 percent with a heavily calcified aortic valve. Valve area is 0.6 cm2, mean gradient is 34 mmHg. She has carotid artery disease, hypertension, hyperlipidemia, anemia. She has supraventricular tachycardia. SURGICAL HISTORY: She had kyphoplasty, cataract extraction, and recent aortic balloon valvuloplasty. SOCIAL HISTORY: She is a , retired, lives at home. She has children. FAMILY HISTORY: Mother had coronary heart disease. ALLERGIES: Penicillin and Levaquin. HOME MEDICATIONS: Listed include 1. Aspirin 81 daily. 2. Coreg 3.125 twice a day. 3. Colace 100 twice a day. 4. Furosemide 40 mg daily. 5. Multivitamins daily. 6. Zofran 4 mg every 6 hours. 7. Protonix 40 mg daily. 8. Sucralfate 1 g every 6 hours. 9. Zolpidem 10 mg at bedtime. REVIEW OF SYSTEMS: She is more tired than usual and more short of breath than usual. Has not had any recent chest pain. No other significant positives. PHYSICAL EXAMINATION: Vital Signs: Blood pressure 100/50, pulse 89, temperature 98.8 degrees, respirations 18. General: She is awake, follow commands. HEENT: Unremarkable. Chest: Occasional scattered crepitans at the right base. Heart: Heart sounds are regular rhythm with a systolic murmur over the aortic area. Abdomen: Soft, nontender. No masses or hepatomegaly. Extremities: Showed palpable pulses. No peripheral edema. Neurological: Nonfocal. Moves all 4 extremities. LABORATORY DATA: White cell count 7800, hemoglobin 9.4, hematocrit 30.1. D- dimer was 1.54. PT, PTT normal. Sodium 137, potassium 3.9, BUN 15, creatinine 0.9. ProBNP is 28,205. IMPRESSION: 1. Patient who presents with acute pulmonary edema. This is really a "flash" pulmonary edema. The etiology is probably mixed and is in part due to severe aortic valve stenosis and probably due also to significant coronary artery disease,including left main coronary stenosis. 2. History of previous coronary stents. 3. History of hypertension and hyperlipidemia. RECOMMENDATION: At this point in time, we will continue diuretics as started by the hospitalist service. As far as medical therapy, her case is really not amenable to a great deal of pharmacological intervention since she really has very low blood pressure at this time, and she has a well-defined case of severe aortic stenosis and also significant coronary artery disease. In my opinion, the patient needs to return to [facility] for the physicians to determine which way to go regarding the management of her condition. At this time, we will observe her in this hospital until she is stable enough to be either transferred or discharged home. cc: MD Zachary Walls MD MTDD
[2018-12-11 17:46] LABS: URINE SOURCE CATH
[2018-12-11 17:49] LABS: BILIRUBIN URINE NEGATIVE (NEGATIVE); BLOOD URINE NEGATIVE (NEGATIVE); COLOR STRAW; GLUCOSE URINE NEGATIVE (NEGATIVE); KETONE URINE NEGATIVE (NEGATIVE); LEUKOCYTES URINE NEGATIVE (NEGATIVE); NITRITE URINE NEGATIVE (NEGATIVE); PH URINE 7.5; PROTEIN URINE NEGATIVE (NEGATIVE); SP GRAVITY URINE 1.005; TURBIDITY URINE CLEAR (CLEAR); UROBILINOGEN URINE NORMAL (NORMAL)
[2018-12-11 17:50] LABS: UR EPITHELIAL CELLS <10 /HPF (<10); URINE BACTERIA NEGATIVE /HPF; URINE RBC <10 /HPF (<10); URINE WBC <10 /HPF (<10)
--- NOTE | 2018-12-11 17:57 | PROVIDER DOCUMENTATION ---
This chart was entered by Layne Wilhelm Scribe, acting as scribe for Bhavna Bhandari MD. HPI-Respiratory General - General Chief Complaint: Shortness of Breath Stated Complaint: sob Time Seen by Provider: 12/10/18 23:43 Source: EMS Allergies/Adverse Reactions: Patient Allergies Allergy/AdvReac Type Severity Reaction Status Date / Time levofloxacin [From Levaquin] Allergy Unknown Verified 12/11/18 04:25 Penicillins Allergy RASH Verified 12/11/18 04:25 Home Medications: Home Medication List Medication Instructions Recorded Confirmed Last Taken Type Multivitamins/Minerals [Centrum 1 ea PO DAILY tab 09/30/18 12/11/18 Unknown Rx Silver] Aspirin [Anitha Chewable] 81 mg PO DAILY 12/11/18 12/11/18 Unknown History Carvedilol [Coreg] 3.125 mg PO BID 12/11/18 12/11/18 Unknown History Docusate Sodium [Colace] 100 mg PO BID 12/11/18 12/11/18 Unknown History Furosemide [Lasix] 40 mg PO DAILY 12/11/18 12/11/18 Unknown History Ondansetron Odt [Zofran 4 mg Odt] 4 mg PO Q6H PRN PRN 12/11/18 12/11/18 Unknown History Pantoprazole [Protonix] 40 mg PO DAILY 12/11/18 12/11/18 Unknown History Sucralfate [Carafate] 1 gm PO Q6H 12/11/18 12/11/18 Unknown History Zolpidem [Ambien] 10 mg PO QHS 12/11/18 12/11/18 Unknown History - History of Present Illness-Resp Nature of Presenting Problem: 83 yof presents to ed w/ ems w/cc resp distress. per ems, pt was at 81% sat at home, put on non-rebreather 15L and pt went up to 100% sat. pt denies cp and cough. pt has cardiac hx. Review of Systems - Adult - REVIEW OF SYSTEMS - ADULT Constitutional: reports: no symptoms reported Eyes: reports: no symptoms reported Ears, Nose, Mouth & Throat: reports: no symptoms reported Cardiovascular: reports: no symptoms reported. denies: chest pain Respiratory: reports: see HPI, shortness of breath. denies: cough Gastrointestinal: reports: no symptoms reported Genitourinary: reports: no symptoms reported Musculoskeletal: reports: no symptoms reported Integumentary: reports: no symptoms reported All Other Systems: Reviewed and Negative Past History - Adult - PAST MEDICAL HISTORY-ADULT Review of Records: reports: Old Records Reviewed, Nursing Assessment Review, Medications Reviewed, Social history reviewed & non-contributory. Major Childhood Illnesses: reports: denies history Cardiovascular: reports: CHF, hyperlipidemia, other (aortic stenosis) Respiratory: reports: denies history Gastrointestinal: reports: denies history Obstetrical/Gynecological: reports: denies history Genitourinary: reports: denies history Musculoskeletal: reports: denies history Neurological: reports: denies history Psychiatric: reports: anxiety Endocrine/Immune: reports: denies history Other Conditions: reports: denies history - PRIOR SURGERIES/PROCEDURES Surgical/Procedure History: reports: cardiac stent - IMMUNIZATION STATUS Childhood Immunizations: See Nurse Assessment Flu Vaccine: See Nurse Assessment - FAMILY HISTORY Family History: reviewed, not pertinent - SOCIAL HISTORY Smoking: non-smoker Substance Use: none/never Physical Exam-General - PHYSICAL EXAM-ADULT Initial Vital Signs Reviewed: Yes - CONSTITUTIONAL General Appearance: alert, mild distress. negative: slow to respond, obtunded, combative - EYES Eyes: PERRL/EOMI, pink conjunctivae - HEAD, EARS, NOSE, MOUTH & THROAT HENMT: normocephalic/atraumatic - NECK Neck: full range of motion, supple - RESPIRATORY Respiratory: chest non-tender, respiratory distress (moderate), crackles (B/L), wheezing (bilat), other (fair air entry). negative: lungs clear, normal breath sounds, no respiratory distress - CARDIOVASCULAR Cardiovascular: normal peripheral pulses, no edema, tachycardia. negative: regular rate, rhythm - GASTROINTESTINAL (ABDOMEN) Abdominal Exam: normal bowel sounds, non tender, soft - MUSCULOSKELETAL Back Exam: normal inspection Extremity: normal range of motion Peripheral Pulses: radial (R): 2+, radial (L): 2+ - SKIN Integumentary: normal color, normal turgor, warm/dry - NEUROLOGIC Neurologic: grossly normal, no motor/sensory deficits Progress - PLAN OF CARE/RESULTS Progress/Plan/Lab Results: Laboratory Results - last 24 hr 12/11/18 12/11/18 12/11/18 00:01 00:01 00:25 WBC 7.80 RBC 2.92 L Hgb 9.4 L Hct 30.1 L MCV 103.1 H MCH 32.2 H MCHC 31.2 L RDW Std Deviation 19.5 H Plt Count 418 H MPV 10.1 Immature Gran % (Auto) 0.0 Neut % (Auto) 10.8 L Lymph % (Auto) 65.5 H [place] % (Auto) 12.4 H Eos % (Auto) 9.9 Baso % (Auto) 1.4 H Immature Gran # (Auto) 0.00 Neut # (Auto) 0.84 L Lymph # (Auto) 5.11 H [place] # (Auto) 0.97 H Eos # (Auto) 0.77 H Baso # (Auto) 0.11 PT INR PTT (Actin FS) D-Dimer, Quantitative Specimen Type ARTERIAL Sample Site R RADIAL pH 7.25 L pCO2 56 H* pO2 440 H HCO3 22.6 Base Excess -3.0 Oxyhemoglobin 98.2 ABG O2 Sat (Calculated) 14.5 L ABG O2 Saturation 100.5 H ABG Carboxyhemoglobin 1.60 ABG Methemoglobin 0.7 Zachary Test YES A-a O2 Difference 203.0 Total Hemoglobin 9.6 L Lactate 1.40 Blood Gas Modality BI PAP FiO2 % 100.0 Inspiratory BiPAP 15.0 Expiratory BiPAP 4.0 Sodium Potassium Chloride Carbon Dioxide Anion Gap BUN Creatinine Estimated GFR/1.73 m2 BUN/Creatinine Ratio Glucose Calculated Osmolality Calcium Total Bilirubin AST ALT Alkaline Phosphatase Troponin T Zgd-V-Nsoyzmmkyzh Pept Total Protein Albumin Globulin Albumin/Globulin Ratio Plasma Lactate 2.3 H Urine Source Urine Color Urine Turbidity Urine pH Ur Specific [place] Urine Protein Ur Glucose (Stick) Ur Ketones (Stick) Urine Blood Urine Nitrite Urine Bilirubin Urobilinogen Dipstick Urine Leukocytes Urine WBC (Auto) Urine RBC (Auto) U Epithel Cells (Auto) Urine Bacteria (Auto) 12/11/18 12/11/18 12/11/18 01:05 01:05 01:05 WBC RBC Hgb Hct MCV MCH MCHC RDW Std Deviation Plt Count MPV Immature Gran % (Auto) Neut % (Auto) Lymph % (Auto) [place] % (Auto) Eos % (Auto) Baso % (Auto) Immature Gran # (Auto) Neut # (Auto) Lymph # (Auto) [place] # (Auto) Eos # (Auto) Baso # (Auto) PT INR PTT (Actin FS) D-Dimer, Quantitative 1.54 H Specimen Type Sample Site pH pCO2 pO2 HCO3 Base Excess Oxyhemoglobin ABG O2 Sat (Calculated) ABG O2 Saturation ABG Carboxyhemoglobin ABG Methemoglobin Zachary Test A-a O2 Difference Total Hemoglobin Lactate Blood Gas Modality FiO2 % Inspiratory BiPAP Expiratory BiPAP Sodium 133 L Potassium 4.7 Chloride 100 Carbon Dioxide 23 L Anion Gap 10 BUN 16 Creatinine 0.8 Estimated GFR/1.73 m2 > 60 BUN/Creatinine Ratio 20 Glucose 232 H Calculated Osmolality 275 Calcium 8.1 L Total Bilirubin 0.29 AST 19 ALT 8 L Alkaline Phosphatase 135 H Troponin T < 0.010 Pmf-M-Zhhnmmbtggz Pept Total Protein 8.0 Albumin 2.8 L Globulin 5.2 Albumin/Globulin Ratio 0.5 Plasma Lactate Urine Source Urine Color Urine Turbidity Urine pH Ur Specific [place] Urine Protein Ur Glucose (Stick) Ur Ketones (Stick) Urine Blood Urine Nitrite Urine Bilirubin Urobilinogen Dipstick Urine Leukocytes Urine WBC (Auto) Urine RBC (Auto) U Epithel Cells (Auto) Urine Bacteria (Auto) 12/11/18 12/11/18 12/11/18 01:05 01:05 01:50 WBC RBC Hgb Hct MCV MCH MCHC RDW Std Deviation Plt Count MPV Immature Gran % (Auto) Neut % (Auto) Lymph % (Auto) [place] % (Auto) Eos % (Auto) Baso % (Auto) Immature Gran # (Auto) Neut # (Auto) Lymph # (Auto) [place] # (Auto) Eos # (Auto) Baso # (Auto) PT 13.9 INR 0.99 PTT (Actin FS) 32.7 D-Dimer, Quantitative Specimen Type Sample Site pH pCO2 pO2 HCO3 Base Excess Oxyhemoglobin ABG O2 Sat (Calculated) ABG O2 Saturation ABG Carboxyhemoglobin ABG Methemoglobin Zachary Test A-a O2 Difference Total Hemoglobin Lactate Blood Gas Modality FiO2 % Inspiratory BiPAP Expiratory BiPAP Sodium Potassium Chloride Carbon Dioxide Anion Gap BUN Creatinine Estimated GFR/1.73 m2 BUN/Creatinine Ratio Glucose Calculated Osmolality Calcium Total Bilirubin AST ALT Alkaline Phosphatase Troponin T Evv-M-Rtfdrzzgmmo Pept 72775 H Total Protein Albumin Globulin Albumin/Globulin Ratio Plasma Lactate Urine Source CLEAN CATCH Urine Color STRAW Urine Turbidity CLEAR Urine pH 6.0 Ur Specific [place] 1.000 Urine Protein NEGATIVE Ur Glucose (Stick) NEGATIVE Ur Ketones (Stick) NEGATIVE Urine Blood NEGATIVE Urine Nitrite NEGATIVE Urine Bilirubin NEGATIVE Urobilinogen Dipstick NORMAL Urine Leukocytes NEGATIVE Urine WBC (Auto) <10 Urine RBC (Auto) <10 U Epithel Cells (Auto) <10 Urine Bacteria (Auto) NEGATIVE Orders Category Date Time Status Admit - [facility] Routine AdmDCTranf 12/11/18 04:20 Active Activity - Strict Bedrest ORDERED Care 12/11/18 04:20 Active Aspiration Precautions DIRECTED Care 12/11/18 05:23 Active Daily Weights 0500 Care 12/11/18 05:23 Active Elevate Head of Bed DIRECTED Care 12/11/18 05:23 Active Intake and Output-Strict ORDERED Care 12/11/18 04:20 Active Notify Primary MD of Admission ONCE Care 12/11/18 07:00 Completed Nursing- Assist w/ IS as order [id number] Care 12/11/18 04:20 Active Nursing- MD Consult Request ROUTINE Care 12/11/18 04:20 Completed Nursing- MD Consult Request ROUTINE Care 12/11/18 05:17 Active Vital Signs Order Q 4-HR ASSESS Care 12/11/18 04:20 Active Weight on Admission ORDERED Care 12/11/18 05:23 Active Z-Document. for Tele Applied ORDERED Care 12/11/18 04:20 Completed Case Management Consult Routine Cons 12/11/18 07:00 Active Physician/Provider Consults Routine Cons 12/11/18 07:00 Ordered Physician/Provider Consults Routine Cons 12/11/18 07:00 Ordered Heart Healthy Diet Diet 12/11/18 05:20 Active CHEST-PORTABLE [RAD] Stat Exams 12/10/18 23:[address] ANGIOGRM PULMONARY ARTERIES [CT] Stat Exams 12/11/18 02:06 Completed ABG [RESP] Routine Lab 12/10/18 23:45 Completed ABG [RESP] Routine Lab 12/11/18 07:50 Completed BASIC METABOLIC PANEL [CHEM] Stat Lab 12/11/18 07:25 Completed BNP [PRO B-NATRIURETIC PEPTIDE] Stat Lab 12/11/18 01:05 Completed CBC WITH ELECTRONIC DIFF [HEME] Stat Lab 12/11/18 00:01 Completed CK PROFILE [SP CHEM] Q6H Lab 12/11/18 07:25 Completed CK PROFILE [SP CHEM] Q6H Lab 12/11/18 13:18 Completed CK PROFILE [SP CHEM] Q6H Lab 12/11/18 19:00 Ordered COMPREHENSIVE METABOLIC PANEL [CHEM] Stat Lab 12/11/18 01:05 Completed D-DIMER [COAG] Stat Lab 12/11/18 01:05 Completed LACTATE, PLASMA [CHEM] Stat Lab 12/11/18 00:01 Completed MAGNESIUM [CHEM] Stat Lab 12/11/18 07:25 Completed PT [PROTIME WITH INR] [COAG] Stat Lab 12/11/18 01:05 Completed PTT [COAG] Stat Lab 12/11/18 01:05 Completed TROPONIN T Q6H Lab 12/11/18 07:25 Completed TROPONIN T Q6H Lab 12/11/18 13:18 Completed TROPONIN T Q6H Lab 12/11/18 19:00 Ordered TROPONIN T Stat Lab 12/11/18 01:05 Completed URINALYSIS W/POSS RFLX CULT [URINALYSIS] Stat Lab 12/11/18 01:50 Completed Acetaminophen [Tylenol] Med 12/11/18 05:23 Active 650 mg PO Q6H PRN PRN Albuterol 2.5MG/Ipratrop 0.5MG [Duoneb (A & A)] Med 12/11/18 05:25 Active 3 ml INH Q4-6H PRN PRN Albuterol 2.5MG/Ipratrop 0.5MG [Duoneb (A & A)] Med 12/10/18 23:44 Discontinued 6 ml INH NOW ONE Aspirin Med 12/11/18 09:00 Active 81 mg PO DAILY Carvedilol [Coreg] Med 12/11/18 09:00 Active 3.125 mg PO BID CefTRIAXONE [Rocephin] 1 gm Med 12/11/18 01:11 Discontinued 0.9% Sodium Chloride Inj [Ns] 50 ml IV NOW Docusate Sodium [Colace] Med 12/11/18 09:00 Active 100 mg PO BID Enoxaparin [Lovenox] Med 12/11/18 06:00 Active 40 mg SUBQ DAILY@0600 Furosemide [Lasix] Med 12/11/18 00:10 Discontinued 40 mg .ROUTE .STK-MED ONE Furosemide [Lasix] Med 12/11/18 00:07 Discontinued 40 mg IV NOW ONE Furosemide [Lasix] Med 12/11/18 12:00 Active 40 mg IV Q12H Labetalol Med 12/11/18 00:21 Discontinued 10 mg IV NOW ONE Multivitamins/Minerals [Centrum Silver] Med 12/11/18 09:00 Active 1 each PO DAILY Nitroglycerin Med 12/11/18 00:23 Discontinued 1 inch .ROUTE .STK-MED ONE Nitroglycerin Med 12/11/18 00:20 Discontinued 1 inch TOP NOW ONE Omeprazole [Prilosec] Med 12/11/18 07:00 Active 20 mg PO DAILY@0700 Ondansetron [Zofran] Med 12/11/18 05:19 Active 4 mg IV Q6H PRN PRN Ondansetron [Zofran] Med 12/11/18 00:25 Discontinued 8 mg IV NOW ONE Aerosol Treatments Routine Ot 12/10/18 23:44 Completed Aerosol Treatments Routine Ot 12/11/18 05:25 Active Aerosol Treatments Stat Ot 12/10/18 23:44 Completed Aerosol Treatments Stat Ot 12/11/18 05:25 Active Incentive Spirometer Routine Ot 12/11/18 04:20 Active Oxygen Device Routine Ot 12/11/18 05:19 Active Pulse Oximetry Routine Ot 12/11/18 04:20 Active Telemetry [OM.EQ] Routine Ot 12/11/18 04:20 Active mat [Aerosol Treatments] Stat Ot 12/10/18 23:40 Completed EKG [EKG] Routine Ther 12/11/18 08:00 Draft EKG [EKG] Stat Ther 12/10/18 23:40 Draft Echo Spec/Color Doppler Routine Ther 12/11/18 07:00 Completed Transfer/Admit Order [TRANSFER] Routine Transfer 12/11/18 03:07 Completed Result Diagrams: 12/11/18 00:01 12/11/18 07:25 - REASSESSMENT Reassessment #1 Time Reassessed: 00:20 Status: improving (less SOB on Bipap) Reassessment #2 Time Reassessed: 00:54 Status: improving (On non rebreather, feels better still has some SOB.) - EKG 1 Time of EKG reading by physician:: 23:48 EKG Read and Signed by:: Bhavna Bhandari EKG Interpretation (*Must complete 3 of following elements*): Abnormal Rate: 144 (poss left atrial enlargment ) Rhythm: ST [place]: normal QRS: normal [place] Interval: normal ST Wave: non-specific ST changes (st & t wave abnormality, consider inferolateral ischemia) - CONSULTS/PCP/HOSPITALIST Notification #1 *Consult/PCP/Hospitalist*: Dr. Spring Time Discussed: :20 Consult Disposition: Admit (Dr. Spring will admit pt) Departure - Departure Date of Disposition Decision: 12/11/18 Time of Disposition Decision: :20 DIAGNOSIS: CHF exacerbation Qualifiers: Heart failure type: unspecified Qualified Code(s): I50.9 - Heart failure, uns pecified Acute respiratory failure Qualifiers: Respiratory failure complication: hypoxia and hypercapnia Qualified Code(s): J96.01 - Acute respiratory failure with hypoxia; J96.02 - Acute respiratory failure with hypercapnia Aortic stenosis Qualifiers: Cardiac valve disease etiology: etiology unspecified Qualified Code(s): I35.0 - Nonrheumatic aortic (valve) stenosis Disposition: ADMITTED INPATIENT 09 Certified Medical Emergency: Emergent Condition: Serious - Critical Care Note This patient required my direct & personal management of CC.: No Attestation - Physician/ ANTOINE Attestation Patient care was provided by Advanced Practice Provider:: No The physician spent face to face time with patient:: Yes Advanced Practice Provider documentation review:: Supervising physician onsite and consulted in the evaluation and care of this patient. The physician did have a face to face encounter with the patient. This chart was documented by the indicated scribe, (Layne Wilhelm Scribe) and accurately reflects the services I performed and decisions made by me, Bhavna Jama MD, as attested by the provider's signature.
[2018-12-12 05:05] LABS: CALCIUM 8.4 mg/dL (8.8-10.2); MAGNESIUM 1.9 mg/dL (1.5-2.7); POTASSIUM 3.7 mmol/L (3.5-5.1)
[2018-12-12] MEDS: LOVENOX SUBQ SCH (05:57)
[2018-12-12] MEDS: PRILOSEC PO SCH (05:59)
--- NOTE | 2018-12-12 06:40 | Diag Imaging Result Doc PS360 ---
EXAM: CHEST-PORTABLE HISTORY: dyspnea TECHNIQUE: Portable chest single view COMPARISON: 12/10/2018 FINDINGS: Poor inspiratory effort. No significant vascular distention on the current exam. No consolidation. Trace pleural fluid is present. IMPRESSION: Interval improvement. Electronically signed by Tab Alba 12/12/2018 6:37 AM
--- NOTE | 2018-12-12 07:37 | EKG Report ---
Test Performed on : 12/12/2018 06:50:44 AM Test Reason : dyspnea Blood Pressure : / mmHG Vent. Rate : 086 BPM Atrial Rate : 086 BPM P-R Int : 148 ms QRS Dur : 088 ms QT Int : 468 ms P-R-T Axes : 025 000 220 degrees QTc Int : 560 ms Normal sinus rhythm. Possible Left atrial enlargement Left ventricular hypertrophy with repolarization abnormality Prolonged QT Abnormal ECG When compared with ECG of 11-DEC-2018 07:55, (Unconfirmed) T wave inversion more evident in Inferior leads T wave inversion more evident in Anterior leads QT has lengthened Confirmed by Jennifer ELIAS, Zachary Gonzalez ([id number]) on 12/13/2018 9:42:50 AM
--- NOTE | 2018-12-12 08:20 | CARDIOLOGY PROGRESS NOTE ---
DATE: 12/12/2018 CHIEF COMPLAINT: Shortness of breath. SUBJECTIVE: Ms. Hogan is feeling much better. She is eating her breakfast. She is in no distress, no chronic pain. OBJECTIVE: Vital signs: Blood pressure 107/60, pulse 89, respirations 18, temperature 99.2. General: She is awake, alert, in no distress. HEENT: Unremarkable. Chest: Some charanjit crepitus at the bases. Heart: Sounds are regular and rhythmic with a prominent systolic murmur over the aortic area. Abdomen: Nontender. Extremities: Showed no edema. Neurologic exam: Follows commands, moves all 4 extremities. BLOOD WORK: Sodium is 135, potassium 3.7, BUN 20, creatinine 1.0. Her EKG today 12/12 shows a deep T wave inversion in precordial leads, V1, 2, 3, 4, 5. That suggests anterior wall ischemia and that is a change when compared to previous EKG. Chest x-ray shows interval improvement. IMPRESSION: 1. Patient who presented with fulminant pulmonary edema. She does have severe aortic stenosis. She received aortic balloon valvuloplasty in October of this year. She does have severe coronary heart disease including left main stenosis. 2. History of hypertension. 3. History of hyperlipidemia. RECOMMENDATIONS: At this time, we will contact [facility] and discuss with them whether or not they would consider taking her for further management. In my opinion, this patient should pursue open heart surgery including aortic valve replacement and coronary bypass surgery. That was the original intent in September of 2017 and the procedure was aborted because of unexplained fever on the day of the operation. That issue has not been clarified and I believe it needs to be resolved since that appears to be the most appropriate way of treating this patient's condition. We will observe her in the ICU. cc: MD Zachary Walls MD
[2018-12-12] MEDS: CENTRUM SILVER PO SCH (08:21)
[2018-12-12] MEDS: ASPIRIN PO SCH (08:21)
[2018-12-12] MEDS: COLACE PO SCH (08:21)
[2018-12-12] MEDS: COREG PO SCH (08:21)
--- NOTE | 2018-12-12 09:08 | PROGRESS NOTE ---
DATE: 12/12/2018 SUBJECTIVE: Ms. Hogan is breathing comfortably. No further chest pain. Feels good. OBJECTIVE: Vital signs: Temperature 99.2 degrees, pulse 89, respirations 18, blood pressure 107/60. HEENT: Pupils are equal. Lungs: Clear in all lung knox. Cardiovascular: Regular rhythm and rate without murmur or S3. Abdomen: Soft. Skin: Warm and dry. Genitourinary: Urine output is 7200 mL. LABORATORY DATA: Reviewed from this morning: Sodium 135, potassium 3.4, chloride 94, BUN 20, creatinine 1.0, good renal function. Cardiac enzymes: CK was 22 and 17. Troponin less than 0.01 and then 0.012, so no sign of cardiac ischemia. DIAGNOSTIC DATA: Echocardiogram done yesterday. Right atrium appears normal size. Mild tricuspid regurgitation. RV systolic pressure 25. Normal RV size and systolic function. No significant pulmonary insufficiency. Normal left atrial size with dimension 3.9 cm. No mitral prolapse. Heavy mitral annular calcification, mild to moderate mitral regurgitation and no evidence of mitral stenosis. Left ventricular size, end-diastolic dimension 4.1, suggestion of mild left ventricular hypertrophy. There is reduction in LV systolic function. Estimated ejection fraction 35 to 40 percent but appears to be better than the previous study in September 2018. Aortic valve heavily calcified, restriction in motion. Peak gradient 47 with a mean of 34. The previous gradients were 58 and 35 respectively. No pericardial effusion seen. ASSESSMENT: 1. The patient presented with fulminant pulmonary edema. She has severe aortic stenosis, received aortic balloon valvuloplasty in October of this year and she has severe coronary artery disease, including left main stenosis. 2. History of hypertension. 3. Hyperlipidemia. PLAN: Will discuss with Dr. Bee. It appear she needs to pursue open heart surgery including aortic valve replacement, coronary bypass surgery which was attempted back in September 2017, aborted because of unexplained fever on the day of operation. cc: Zachary Rodriguez MD
[2018-12-12] MEDS: LASIX IV SCH (11:30)
[2018-12-12 13:11] VITALS: BP 93/53
== END 2018-12-12 13:30 | disposition short-term general hospital (02) | DRG 291 ==
LOC: SUPCPDRO → ED 23:35 → SUATTDRO 12-11 06:00 → EDIPHOLD 12-11 06:00 → ICU 12-11 07:43
PROVIDERS: ADMIT Emergency Medicine; ATTEND Emergency Medicine
CPT/HCPCS: 51702; 71010; 71045; 71275; 80048; 80053; 81001; 82550; 82805; 83605; 83735; 83880; 84484; 85025; 85379; 85610; 85730; 93005; 93010; 93306; 94640; 94799; 96365; 96375; 99285; A9270; J0696; J1650; J1940; J2405; Q9967